=== PATIENT | female | born 1965 | race African-American/Black ===

== ENCOUNTER 2017-03-11 15:50 | Inpatient (IN) | payer MEDICAID ==
[~2017-03-11] VITALS: Ht 152.4 cm; Wt 61.2 kg
[~2017-03-11 15:50] MED LIST: NKM
[2017-03-11 15:53] VITALS: BP 122/58
--- NOTE | 2017-03-11 15:59 | Emergency Room Report ---
History of Present Illness General Chief Complaint: Chest Pain Source: Patient Present Illness HPI Patient presents with chest pain. It began last night. She feels it radiates across her chest that comes from the onset of her last period she tried taking Zantac last night. This is her pass gas but didn't change the feeling of the chest pain. She also felt radiating toward her left arm and had some weakness in that arm earlier today. Gen. a stress. She does not smoke but has risk factor of family history. She states that she had a dobutamine stress test 4 years ago that she passed without difficulty although she felt awful. EMS EKG showed no injury. They gave her aspirin. He held on nitroglycerin because blood pressure was low. She usually has a low blood pressure. She denies fevers, cough, sore throat. She denies dysuria. She supposed is menopausal. She does say that she's been having some loose stools recently. She denies any melena. She also complains about nausea. 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 Nursing Documentation: PMH: Agreed, PSxH: Agreed Nursing Documentation-PMH History Of Psychiatric Problem: Yes - Anxiety Review of Systems All Other Systems: negative except mentioned in HPI Physical Exam Vital Signs Date Time Temp Pulse Resp B/P (MAP) Pulse Ox O2 Delivery O2 Flow Rate FiO2 03/11/17 15:45 98.1 88 16 106/88 100 Room Air Sp02 EP Interpretation: reviewed, normal General Appearance: well appearing, no apparent distress, GCS 15 Head: normocephalic Eyes: bilateral eye normal inspection, bilateral eye PERRL ENT: moist mucus membranes Neck: supple Respiratory: lungs clear, normal breath sounds Cardiovascular #1: regular rate, rhythm Cardiovascular #2: 2+ radial (R) Gastrointestinal: normal inspection, normal bowel sounds, non tender, no mass, non-distended Musculoskeletal: back normal, gait/station normal, normal range of motion Neurologic: alert, oriented x3, grossly normal Psychiatric: mood/affect normal Skin: normal inspection, warm/dry Medical Decision Making Diagnostic Impression: Primary Impression: Chest pain Qualified Codes: R07.9 - Chest pain, unspecified Additional Impressions: UTI (urinary tract infection) Qualified Codes: N30.00 - Acute cystitis without hematuria Stress ER Course Patient presents with chest pain. History is somewhat atypical. She has a risk factor of family history. Differential includes acute myocardial infarction, acute coronary syndrome, costochondritis, chest wall pain, reflux esophagitis, GERD, gastritis amongst others. Evaluation will be was EKG, chest x-ray and labs. The patient received aspirin in the field. Her blood pressures are therefore nitroglycerin cannot be given. The fact that GI meds did not help pain lends possible other etiology. EKG without injury. CXR clear. Labs with negative troponin. Pyuria - antibiotics begun. Improved but still not feel well with chest pressure. Admit tele Dr. Marsh. Laboratory Tests Test 03/11/17 15:45 03/11/17 16:10 03/11/17 21:45 White Blood Count 8.5 K/UL (4.8-10.8) Red Blood Count 4.54 M/UL (4.20-5.40) Hemoglobin 13.5 G/DL (12.0-16.0) Hematocrit 41.9 % (37.0-47.0) Mean Corpuscular Volume 92 FL (80-99) Mean Corpuscular Hemoglobin 29.7 PG (27.0-31.0) Mean Corpuscular Hemoglobin Concent 32.2 G/DL (32.0-36.0) Red Cell Distribution Width 12.5 % (11.6-14.8) Platelet Count 277 K/UL (150-450) Mean Platelet Volume 10.0 FL (6.5-10.1) Neutrophils (%) (Auto) 47.8 % (45.0-75.0) Lymphocytes (%) (Auto) 38.6 % (20.0-45.0) Monocytes (%) (Auto) 8.0 % (1.0-10.0) Eosinophils (%) (Auto) 4.1 % (0.0-3.0) H Basophils (%) (Auto) 1.5 % (0.0-2.0) Prothrombin Time 10.3 SEC (9.30-11.50) Prothrombin Time INR 1.0 (0.9-1.1) PTT 28 SEC (23-33) Sodium Level 141 MMOL/L (136-145) Potassium Level 4.0 MMOL/L (3.5-5.1) Chloride Level 106 MMOL/L (98-107) Carbon Dioxide Level 29 MMOL/L (21-32) Anion Gap 7 mmol/L (5-15) Blood Urea Nitrogen 14 mg/dL (7-18) Creatinine 1.3 MG/DL (0.55-1.30) Estimate Glomerular Filtration Rate 51.9 mL/min (>60) Glucose Level 89 MG/DL (74-106) Calcium Level 9.2 MG/DL (8.5-10.1) Total Bilirubin 0.2 MG/DL (0.2-1.0) Aspartate Amino Transferase (AST) 12 U/L (15-37) L Alanine Aminotransferase (ALT) 13 U/L (12-78) Alkaline Phosphatase 63 U/L (46-116) Total Creatine Kinase 100 U/L (26-140) Troponin I 0.000 ng/mL (0.000-0.056) 0.000 ng/mL (0.000-0.056) Pro-B-Type Natriuretic Peptide 33 pg/mL (0-125) Total Protein 7.7 G/DL (6.4-8.2) Albumin 3.5 G/DL (3.4-5.0) Globulin 4.2 g/dL Albumin/Globulin Ratio 0.8 (1.0-2.7) L Urine Color Pale yellow Urine Appearance Slightly cloudy Urine pH 5 (4.5-8.0) Urine Specific [place] 1.025 (1.005-1.035) Urine Protein 1+ (NEGATIVE) H Urine Glucose (UA) Negative (NEGATIVE) Urine Ketones Negative (NEGATIVE) Urine Occult Blood 2+ (NEGATIVE) H Urine Nitrite Negative (NEGATIVE) Urine Bilirubin Negative (NEGATIVE) Urine Urobilinogen Normal MG/DL (0.0-1.0) Urine Leukocyte Esterase 3+ (NEGATIVE) H Urine RBC 5-10 /HPF (0 - 2) H Urine WBC 40-60 /HPF (0 - 2) H Urine Squamous Epithelial Cells Moderate /LPF (NONE/OCC) H Urine Bacteria Moderate /HPF (NONE) H EKG Diagnostic Results Rate: normal Rhythm: NSR ST Segments: no acute changes Rhythm Strip Diag. Results EP Interpretation: yes Rhythm: NSR, no PVC's, no ectopy Chest X-Ray Diagnostic Results Chest X-Ray Diagnostic Results : Chest X-Ray Ordered: Yes # of Views/Limited/Complete: 1 View EP Interpretation: Yes Interpretation: no consolidation, no effusion, no pneumothorax, no acute cardiopulmonary disease Impression: No acute disease Electronically Signed by: Electronically signed by Bertin Krishna MD Last Vital Signs Date Time Temp Pulse Resp B/P (MAP) Pulse Ox O2 Delivery O2 Flow Rate FiO2 03/12/17 04:28 96.3 55 18 99/54 92 Room Air Status: improved Disposition: ADMITTED INPATIENT Condition: Serious Bertin Krishna M.D. Mar 11, 2017 15:59
[2017-03-11] MEDS ORDERED: LORazepam Inj 2mg/ml 1ml IV ONE (16:00)
[2017-03-11 16:44] LABS: APPEARANCE,URINE SLIGHTLY CLOUDY; KETONES,URINE NEGATIVE (NEGATIVE); LEUKOCYTE ESTERASE ,URINE 3+ (NEGATIVE); NITRITE,URINE NEGATIVE (NEGATIVE); PH,URINE 5 (4.5-8.0); PROTEIN,URINE 1+ (NEGATIVE); UROBILINOGEN,URINE NORMAL MG/DL (0.0-1.0)
[2017-03-11 16:45] LABS: BASOPHILS % (AUTO) 1.5 % (0.0-2.0); EOSINOPHILS % (AUTO) 4.1 % (0.0-3.0); LYMPHOCYTES % (AUTO) 38.6 % (20.0-45.0); MEAN CORPUSCULAR HEMOGLOBIN 29.7 PG (27.0-31.0); MEAN CORPUSCULAR HGB CONC 32.2 G/DL (32.0-36.0); MEAN CORPUSCULAR VOLUME 92 FL (80-99); NEUTROPHILS % (AUTO) 47.8 % (45.0-75.0); PLATELET COUNT 277 K/UL (150-450); RED BLOOD COUNT 4.54 M/UL (4.20-5.40); RED CELL DISTRIBUTION WIDTH 12.5 % (11.6-14.8); WHITE BLOOD COUNT 8.5 K/UL (4.8-10.8)
[2017-03-11 16:58] LABS: PROTHROMBIN TIME 10.3 SEC (9.30-11.50)
[2017-03-11 17:08] LABS: ALANINE AMINOTRANSFERASE 13 U/L (12-78); ASPARTATE AMINO TRANSFERASE 12 U/L (15-37); CALCIUM 9.2 MG/DL (8.5-10.1); CARBON DIOXIDE 29 MMOL/L (21-32); CREATININE 1.3 MG/DL (0.55-1.30); GLOMERULAR FILTRATION RATE 51.9 mL/min (>60)
[2017-03-11 17:09] LABS: ALBUMIN/GLOBULIN RATIO 0.8 (1.0-2.7); TOTAL PROTEIN 7.7 G/DL (6.4-8.2)
[2017-03-11 17:12] LABS: ANION GAP 7 mmol/L (5-15); CHLORIDE 106 MMOL/L (98-107); SODIUM 141 MMOL/L (136-145)
[2017-03-11 17:19] LABS: BACTERIA,URINE MODERATE /HPF; SQUAMOUS EPITHELIAL CELL,UR MODERATE /LPF (NONE/OCC); WBC,URINE 40-60 /HPF (0 - 2)
[2017-03-11] MEDS ORDERED: cefTRIAXone 1 GM in NS 55 ML IVPB ONE (17:30)
[2017-03-11 18:15] VITALS: BP 101/67
[2017-03-11 19:20] VITALS: BP 111/80
[2017-03-11] MEDS ORDERED: Enalaprilat 2.5mg/2ml Inj IV PRN (20:00)
[2017-03-11] MEDS ORDERED: Nitroglycerin Subl 0.4mg tab SL PRN (20:00)
[2017-03-11] MEDS ORDERED: Miralax 17gm pkt ORAL PRN (20:00)
[2017-03-11] MEDS ORDERED: Morphine Sulfate 2mg/ml Inj IVP PRN (20:00)
[2017-03-11] MEDS ORDERED: Albuterol/Ipratropium 3ml neb HHN PRN (20:00)
[2017-03-11] MEDS ORDERED: dilTIAZem HCl 25mg/5ml Inj IV PRN (20:00)
[2017-03-11 20:12] VITALS: BP 103/59
[2017-03-11 21:07] VITALS: BP 99/84
[2017-03-11] MEDS: Heparin 5000 units/ml inj SUBQ SCH (22:03)
[2017-03-12 00:41] VITALS: BP 98/50
[2017-03-12 04:28] VITALS: BP 99/54
[2017-03-12 07:25] LABS: BASOPHILS % (AUTO) 1.4 % (0.0-2.0); EOSINOPHILS % (AUTO) 4.5 % (0.0-3.0); LYMPHOCYTES % (AUTO) 46.8 % (20.0-45.0); MEAN CORPUSCULAR HEMOGLOBIN 29.8 PG (27.0-31.0); MEAN CORPUSCULAR HGB CONC 32.6 G/DL (32.0-36.0); MEAN CORPUSCULAR VOLUME 91 FL (80-99); MEAN PLATELET VOLUME 10.7 FL (6.5-10.1); MONOCYTES % (AUTO) 7.9 % (1.0-10.0); NEUTROPHILS % (AUTO) 39.4 % (45.0-75.0); PLATELET COUNT 244 K/UL (150-450); RED BLOOD COUNT 4.39 M/UL (4.20-5.40); RED CELL DISTRIBUTION WIDTH 12.6 % (11.6-14.8); WHITE BLOOD COUNT 6.7 K/UL (4.8-10.8)
[2017-03-12 07:32] LABS: PROTHROMBIN TIME 10.6 SEC (9.30-11.50)
[2017-03-12 07:52] LABS: CHOLESTEROL 212 MG/DL (< 200); CHOLESTEROL/HDL RATIO 4.2 (3.3-4.4); THYROID STIMULATING HORMONE 3.812 uiU/mL (0.358-3.740)
[2017-03-12 07:53] LABS: CRP QUANT < 0.4 mg/dL (0.00-0.90)
[2017-03-12] MEDS: Aspirin Baby 81mg ORAL SCH (08:35)
[2017-03-12] MEDS: Heparin 5000 units/ml inj SUBQ SCH ×2 (08:36→21:54)
[2017-03-12 08:53] VITALS: BP 94/50
--- NOTE | 2017-03-12 10:15 | Diagnostic Imaging Report ---
Indication: Chest pain Technique: One view of the chest Comparison: none Findings: Lungs and pleural spaces are clear. Heart size is normal. Inspiration is suboptimal, with result in minimal atelectasis at the left lung base Impression: No acute process This agrees with the preliminary interpretation provided by the emergency room physician
[2017-03-12 11:50] VITALS: BP 95/53
[2017-03-12] MEDS ORDERED: Ketorolac 30mg Inj IM PRN (12:30)
[2017-03-12] MEDS: Ketorolac 30mg Inj IV PRN ×2 (13:00→19:11)
--- NOTE | 2017-03-12 14:06 | Cardiology Progress Note ---
Assessment/Plan Assessment/Plan The patient is seen and examined, full consult note will be dictated soon. Objective Last 24 Hour Vital Signs Date Time Temp Pulse Resp B/P (MAP) Pulse Ox O2 Delivery O2 Flow Rate FiO2 03/12/17 11:50 97.3 47 18 95/53 100 03/12/17 08:53 97.2 58 18 94/50 98 03/12/17 08:00 57 03/12/17 04:28 96.3 55 18 99/54 92 Room Air 03/12/17 04:00 41 03/12/17 00:41 96.6 50 18 98/50 93 Room Air 03/12/17 00:00 47 03/11/17 21:07 97.5 66 18 99/84 94 Room Air 03/11/17 20:13 97.6 52 14 111/80 97 Room Air 03/11/17 20:12 97.6 53 16 103/59 95 Room Air 03/11/17 19:20 97.6 52 14 111/80 97 Room Air 03/11/17 18:15 62 17 101/67 97 Room Air 03/11/17 15:53 98.4 65 16 122/58 99 Room Air 03/11/17 15:53 65 16 Room Air 03/11/17 15:45 98.1 88 16 106/88 100 Room Air Intake and Output 03/12/17 03/13/17 19:00 07:00 Intake Total 240 ml Balance 240 ml Intake Oral 240 ml # Voids 2 Laboratory Tests Test 03/11/17 15:45 03/11/17 16:10 03/11/17 21:45 03/12/17 06:55 White Blood Count 8.5 K/UL (4.8-10.8) 6.7 K/UL (4.8-10.8) Red Blood Count 4.54 M/UL (4.20-5.40) 4.39 M/UL (4.20-5.40) Hemoglobin 13.5 G/DL (12.0-16.0) 13.1 G/DL (12.0-16.0) Hematocrit 41.9 % (37.0-47.0) 40.1 % (37.0-47.0) Mean Corpuscular Volume 92 FL (80-99) 91 FL (80-99) Mean Corpuscular Hemoglobin 29.7 PG (27.0-31.0) 29.8 PG (27.0-31.0) Mean Corpuscular Hemoglobin Concent 32.2 G/DL (32.0-36.0) 32.6 G/DL (32.0-36.0) Red Cell Distribution Width 12.5 % (11.6-14.8) 12.6 % (11.6-14.8) Platelet Count 277 K/UL (150-450) 244 K/UL (150-450) Mean Platelet Volume 10.0 FL (6.5-10.1) 10.7 FL (6.5-10.1) H Neutrophils (%) (Auto) 47.8 % (45.0-75.0) 39.4 % (45.0-75.0) L Lymphocytes (%) (Auto) 38.6 % (20.0-45.0) 46.8 % (20.0-45.0) H Monocytes (%) (Auto) 8.0 % (1.0-10.0) 7.9 % (1.0-10.0) Eosinophils (%) (Auto) 4.1 % (0.0-3.0) H 4.5 % (0.0-3.0) H Basophils (%) (Auto) 1.5 % (0.0-2.0) 1.4 % (0.0-2.0) Prothrombin Time 10.3 SEC (9.30-11.50) 10.6 SEC (9.30-11.50) Prothromb Time International Ratio 1.0 (0.9-1.1) 1.0 (0.9-1.1) Activated Partial Thromboplast Time 28 SEC (23-33) 29 SEC (23-33) Sodium Level 141 MMOL/L (136-145) Potassium Level 4.0 MMOL/L (3.5-5.1) Chloride Level 106 MMOL/L (98-107) Carbon Dioxide Level 29 MMOL/L (21-32) Anion Gap 7 mmol/L (5-15) Blood Urea Nitrogen 14 mg/dL (7-18) Creatinine 1.3 MG/DL (0.55-1.30) Estimat Glomerular Filtration Rate 51.9 mL/min (>60) Glucose Level 89 MG/DL (74-106) Calcium Level 9.2 MG/DL (8.5-10.1) Total Bilirubin 0.2 MG/DL (0.2-1.0) Aspartate Amino Transf (AST/SGOT) 12 U/L (15-37) L Alanine Aminotransferase (ALT/SGPT) 13 U/L (12-78) Alkaline Phosphatase 63 U/L (46-116) Total Creatine Kinase 100 U/L (26-140) Troponin I 0.000 ng/mL (0.000-0.056) 0.000 ng/mL (0.000-0.056) 0.000 ng/mL (0.000-0.056) Pro-B-Type Natriuretic Peptide 33 pg/mL (0-125) Total Protein 7.7 G/DL (6.4-8.2) Albumin 3.5 G/DL (3.4-5.0) Globulin 4.2 g/dL Albumin/Globulin Ratio 0.8 (1.0-2.7) L Urine Color Pale yellow Urine Appearance Slightly cloudy Urine pH 5 (4.5-8.0) Urine Specific [place] 1.025 (1.005-1.035) Urine Protein 1+ (NEGATIVE) H Urine Glucose (UA) Negative (NEGATIVE) Urine Ketones Negative (NEGATIVE) Urine Occult Blood 2+ (NEGATIVE) H Urine Nitrite Negative (NEGATIVE) Urine Bilirubin Negative (NEGATIVE) Urine Urobilinogen Normal MG/DL (0.0-1.0) Urine Leukocyte Esterase 3+ (NEGATIVE) H Urine RBC 5-10 /HPF (0 - 2) H Urine WBC 40-60 /HPF (0 - 2) H Urine Squamous Epithelial Cells Moderate /LPF (NONE/OCC) H Urine Bacteria Moderate /HPF (NONE) H C-Reactive Protein, Quantitative < 0.4 mg/dL (0.00-0.90) Triglycerides Level 63 MG/DL (30-150) Cholesterol Level 212 MG/DL (< 200) H LDL Cholesterol 150 mg/dL (<100) H HDL Cholesterol 50 MG/DL (40-60) Cholesterol/HDL Ratio 4.2 (3.3-4.4) Thyroid Stimulating Hormone (TSH) 3.812 uiU/mL (0.358-3.740) Microbiology Date/Time Source Procedure Growth Status 03/11/17 16:10 Urine,Clean Catch Urine Culture - Preliminary NO GROWTH Resulted SAHARA ZAMBRANO Mar 12, 2017 14:06
[2017-03-12 15:39] VITALS: BP 92/50
--- NOTE | 2017-03-12 18:59 | Cardiology Report ---
APPROVED REPORT EXAM: Two-dimensional and M-mode echocardiogram with Doppler and color Doppler. INDICATION Left ventricular function M-Mode DIMENSIONS IVSd1.2 (0.7-1.1cm)Left Atrium (MM)2.9 (1.6-4.0cm) LVDd3.9 (3.5-5.6cm)Aortic Root2.9 (2.0-3.7cm) PWd0.9 (0.7-1.1cm)Aortic Cusp Exc.1.9 (1.5-2.0cm) LVDs2.6 (2.5-4.0cm) PWs1.5 cm Normal left ventricular chamber size, systolic function and wall motion. Left ventricular ejection fraction estimated to be 55%. No left ventricular hypertrophy. No evidence of pericardial effusion. All other cardiac chamber sizes are within normal limits. Mild focal aortic valve sclerosis with adequate cusp excursion. Mildly thickened mitral valve leaflets with normal excursion. Mild mitral annulus and aortic root calcification. Pulmonic valve not well visualized. Normal tricuspid valve structure. IVC at normal size with physiologic collapse. A color flow and spectral Doppler study was performed and revealed: Trace aortic regurgitation. Trace mitral regurgitation. Mitral diastolic velocities indicate normal diastolic function. Trace tricuspid regurgitation. Tricuspid systolic velocities suggests peak right ventricular systolic pressure of 9 mmHg. No pulmonic regurgitation present.
--- NOTE | 2017-03-12 19:23 | Cardiology Report ---
APPROVED REPORT EKG Measurement Heart [id number] ID [id number] Sinus rhythm with occasional premature ventricular complexes Low voltage QRS Borderline ECG
[2017-03-12 20:00] VITALS: BP 126/90
--- NOTE | 2017-03-12 21:00 | History and Physical Report ---
DATE OF ADMISSION: 03/11/2017 TIME SEEN: At 9 a.m. CONSULTANTS: 1. Theodore Fischer M.D. 2. Jazlyn Urban M.D. 3. Dr. Walker. CHIEF COMPLAINT: Chest pain. BRIEF HISTORY: This is a 51-year-old female, who lives at home and presented with substernal chest pain, intermittent, sharp to dull, slightly dizzy, and nausea. No passing out. No radiation. The patient came to [place], diagnosed of ACS and UTI, and admitted to telemetry for further care. Currently, slightly anxious in bed, O2 via NC. No complaint otherwise. PAST MEDICAL HISTORY: Nothing. PAST SURGICAL HISTORY: None. MEDICATIONS: Include Tylenol, aspirin, heparin, levofloxacin, nitroglycerin, Toradol, morphine, MiraLAX, Zofran, Restoril, Vasotec, and Cardizem. ALLERGIES: Denies. SOCIAL HISTORY: No smoking. No alcohol. No intravenous drug abuse. FAMILY HISTORY: Noncontributory. REVIEW OF SYSTEMS: Slight chest pain. Slight shortness of breath. Slight nausea. No vomiting or diarrhea. PHYSICAL EXAMINATION: GENERAL: Anxious in bed, oriented x3, in no acute distress. VITAL SIGNS: Temperature 97, pulse 58, respirations 18, and blood pressure 94/50. CARDIOVASCULAR: No murmur. LUNGS: Poor air exchange. ABDOMEN: Bowel sounds positive. Nontender. Nondistended. EXTREMITIES: No cyanosis, clubbing, or edema. NEUROLOGIC: The patient moves all extremities, but slightly weak. LABORATORY AND DIAGNOSTIC DATA: Laboratories at this time show CBC is normal. Troponin 0.0, 0.0, 0.0. BMP is normal. Cholesterol 212. TSH 3.8. INR 1.0. Urinalysis, 3+ leukocyte esterase. ASSESSMENT AND PLAN: 1. Chest pain. 2. Acute coronary syndrome. 3. Dizzy. 4. Nausea. 5. Urinary tract infection. 6. Hypothyroid. PLAN: Continue pre-admit medications. Troponin q.8 h. x3. EKG in the morning. Antibiotics per infectious diseases. Resume home medications. Pain control. Dr. Fischer, Dr. Urban, Dr. Walker, and Dr. Mares to consult. We will continue to follow this patient. Gunnar Marsh D.O. DR: NAV JOB#: [id number] CC:
[2017-03-13] VITALS: BP 113/89
[2017-03-13 04:00] VITALS: BP 100/63
--- NOTE | 2017-03-13 04:00 | Consultation ---
DATE OF CONSULTATION: 03/12/2017 INFECTIOUS DISEASES CONSULTATION CONSULTING PHYSICIAN: Ori Carroll M.D. PRIMARY ATTENDING PHYSICIAN: Gunnar Marsh D.O. REASON FOR CONSULTATION: UTI. HISTORY OF PRESENT ILLNESS: The patient is a 51-year-old female admitted last night because of chest pain. Chest pain is in the center of the chest with radiation to both legs. It was not related to exertion. The patient was noticed to have increased WBC in the urine. So far, the troponin tests are negative. PAST MEDICAL HISTORY: had history of anxiety before. MEDICATIONS: Tylenol, aspirin, heparin, Levaquin, DuoNeb inhaler, Toradol, morphine, MiraLAX, Zofran, enalaprilat, temazepam, and Cardizem. ALLERGIES: No known drug allergies. SOCIAL HISTORY: Lives at home, single. Denies drug and alcohol abuse. She is a nonsmoker. REVIEW OF SYSTEMS: No fever. No chills. Some coughing that is nonproductive. Chest pain as mentioned. No nausea. No vomiting. No urinary symptoms. PHYSICAL EXAMINATION: VITAL SIGNS: Temperature 97.3, pulse 47, and blood pressure 95/53. GENERAL APPEARANCE: No acute distress. Awake, alert, and oriented. HEAD AND NECK: [place] conjunctivae. No oral lesion. HEART: S1, S2. Regular. LUNGS: Clear. ABDOMEN: Soft, nontender. EXTREMITIES: She has no edema. LABORATORY AND DIAGNOSTIC DATA: WBC 6.7, hemoglobin 13.1, hematocrit 40.1, and platelets 244,000. Sodium 141, potassium 4, chloride 106, bicarbonate 29, BUN 14, and creatinine 1.3. Troponin x3 was zero. TSH is elevated at 3.8. UA showed WBC 40-60, RBC 5-10, and leukocyte esterase 3+. IMPRESSION: 1. Pyuria. We will try to rule out urinary tract infection. 2. The patient has atypical chest pain. RECOMMENDATION: We will continue with Levaquin for now. We will follow up the culture. If the culture remains negative, may stop antibiotics. At the end of my exam, I thank Dr. Marsh for involving me in the care of this patient. Oir Carrlol M.D. DR: Oneil JOB#: [id number] CC: [place]
--- NOTE | 2017-03-13 06:02 | General Progress Note ---
Assessment/Plan Problem List: (1) Abnormal thyroid blood test ICD Codes: R94.6 - Abnormal results of thyroid function studies SNOMED: 055204632 (2) Costochondritis ICD Codes: M94.0 - Chondrocostal junction syndrome [[place]] SNOMED: 89312118 (3) ACS (acute coronary syndrome) ICD Codes: I24.9 - Acute ischemic heart disease, unspecified SNOMED: 735360625 (4) Chest pain ICD Codes: R07.9 - Chest pain, unspecified SNOMED: 49464900 Qualifiers: Qualified Codes: R07.9 - Chest pain, unspecified Assessment/Plan mildly elevated TSH is most likely due to state of illness repeat TSH and check free T4 no need to start thyroxine for now Subjective Allergies: Coded Allergies: No Known Allergies (Unverified , 03/11/17) All Systems: reviewed and negative except above Subjective admitted with chest pain Troponin negative TSH mildly elevated Objective Last 24 Hour Vital Signs Date Time Temp Pulse Resp B/P (MAP) Pulse Ox O2 Delivery O2 Flow Rate FiO2 03/13/17 04:00 49 03/13/17 00:00 97.2 76 20 113/89 100 Nasal Cannula 2.0 03/13/17 00:00 58 03/12/17 20:00 56 03/12/17 20:00 97.9 95 21 126/90 96 Room Air 03/12/17 18:53 54 16 Room Air 21 03/12/17 16:00 53 03/12/17 15:39 97.5 53 18 92/50 100 03/12/17 13:30 97.3 03/12/17 12:00 44 03/12/17 11:50 97.3 47 18 95/53 100 03/12/17 08:53 97.2 58 18 94/50 98 03/12/17 08:00 57 03/12/17 07:53 58 18 Room Air 21 Laboratory Tests 03/12/17 06:55: White Blood Count 6.7, Red Blood Count 4.39, Hemoglobin 13.1, Hematocrit 40.1, Mean Corpuscular Volume 91, Mean Corpuscular Hemoglobin 29.8, Mean Corpuscular Hemoglobin Concent 32.6, Red Cell Distribution Width 12.6, Platelet Count 244, Mean Platelet Volume 10.7H, Neutrophils (%) (Auto) 39.4L, Lymphocytes (%) (Auto ) 46.8H, Monocytes (%) (Auto) 7.9, Eosinophils (%) (Auto) 4.5H, Basophils (%) ( Auto) 1.4, Prothrombin Time 10.6, Prothromb Time International Ratio 1.0, Activated Partial Thromboplast Time 29, Troponin I 0.000, C-Reactive Protein, Quantitative < 0.4, Triglycerides Level 63, Cholesterol Level 212H, LDL Cholesterol 150H, HDL Cholesterol 50, Cholesterol/HDL Ratio 4.2, Thyroid Stimulating Hormone (TSH) 3.812H Height (Feet): 5 Height (Inches): 0.00 Weight (Pounds): 135 General Appearance: no apparent distress EENT: PERRL/EOMI Neck: normal alignment Cardiovascular: normal rate Respiratory/Chest: lungs clear Abdomen: normal bowel sounds Objective Current Medications Medications (Trade) Dose Ordered Sig/Domi Route PRN Reason Start Time Stop Time Status Last Admin Dose Admin Acetaminophen (Tylenol) 650 mg Q6H PRN ORAL Mild Pain/Temp > 100.5 03/12/17 09:45 04/11/17 09:44 Albuterol/ Ipratropium (Albuterol/ Ipratropium) 3 ml Q4H PRN HHN Shortness of Breath 03/11/17 20:00 03/16/17 19:59 Aspirin (ASA) 162 mg DAILY ORAL 03/12/17 09:00 04/11/17 08:59 03/12/17 08:35 Diltiazem HCl (Cardizem) 10 mg Q1H PRN IV heart rate more than 120, 03/11/17 20:00 04/10/17 19:59 Enalaprilat (Vasotec) 2.5 mg Q6H PRN IV sbp more than 160 03/11/17 20:00 04/10/17 19:59 Heparin Sodium (Porcine) (Heparin 5000 units/ml) 5,000 units EVERY 12 HOURS SUBQ 03/11/17 21:00 04/10/17 20:59 03/12/17 21:54 Ketorolac Tromethamine (Toradol 30mg) 30 mg Q6H PRN IV moderate pain ( 4-6) 03/11/17 20:00 03/16/17 19:59 03/12/17 19:11 Levofloxacin 100 ml @ 100 mls/hr Q24H IVPB 03/11/17 21:00 03/18/17 20:59 03/12/17 21:52 Morphine Sulfate (Morphine Sulfate) 2 mg Q4H PRN IVP severe Pain (Pain Scale 7-10) 03/11/17 20:00 03/18/17 19:59 03/11/17 22:20 Nitroglycerin (Ntg) 0.4 mg Every 5 Minutes PRN SL Prn Chest Pain 03/11/17 20:00 04/10/17 19:59 Ondansetron HCl (Zofran) 4 mg Q6H PRN IVP Nausea & Vomiting 03/11/17 20:00 04/10/17 19:59 Polyethylene Glycol (Miralax) 17 gm DAILYPRN PRN ORAL Constipation 03/11/17 20:00 04/10/17 19:59 Temazepam (Restoril) 15 mg HSPRN PRN ORAL Insomnia 03/11/17 20:00 03/18/17 19:59 PAVAN SANZ Mar 13, 2017 06:02
[2017-03-13 06:37] LABS: EOSINOPHILS % (AUTO) 3.4 % (0.0-3.0); LYMPHOCYTES % (AUTO) 38.4 % (20.0-45.0); MEAN CORPUSCULAR HEMOGLOBIN 30.9 PG (27.0-31.0); MEAN CORPUSCULAR HGB CONC 33.9 G/DL (32.0-36.0); MEAN CORPUSCULAR VOLUME 91 FL (80-99); MONOCYTES % (AUTO) 8.3 % (1.0-10.0); NEUTROPHILS % (AUTO) 48.8 % (45.0-75.0); PLATELET COUNT 231 K/UL (150-450); RED BLOOD COUNT 4.26 M/UL (4.20-5.40); RED CELL DISTRIBUTION WIDTH 12.4 % (11.6-14.8); WHITE BLOOD COUNT 6.5 K/UL (4.8-10.8)
[2017-03-13 08:13] LABS: ANION GAP 8 mmol/L (5-15); CARBON DIOXIDE 27 MMOL/L (21-32); CHLORIDE 106 MMOL/L (98-107); CREATININE 1.4 MG/DL (0.55-1.30); GLOMERULAR FILTRATION RATE 47.6 mL/min (>60); POTASSIUM 5.2 MMOL/L (3.5-5.1); SODIUM 140 MMOL/L (136-145)
[2017-03-13 08:38] VITALS: BP 111/54
[2017-03-13 08:56] LABS: THYROID STIMULATING HORMONE 1.909 uiU/mL (0.358-3.740)
[2017-03-13] MEDS: Aspirin Baby 81mg ORAL SCH (09:00)
[2017-03-13] MEDS: Heparin 5000 units/ml inj SUBQ SCH ×2 (09:02→20:54)
[2017-03-13 11:46] VITALS: BP 101/63
[2017-03-13] MEDS: Ketorolac 30mg Inj IV PRN ×2 (14:16→20:53)
--- NOTE | 2017-03-13 14:16 | Infectious Diseases Prog Note ---
Assessment/Plan Assessment/Plan A; Pyuria, Doubt UTI Chest pain P; Discontinue Levaquin Patient will have cardiac stress test Subjective ROS Limited/Unobtainable: No Constitutional: Reports: no symptoms Respiratory: Reports: no symptoms Cardiovascular: Reports: chest pain, other - in left side Gastrointestinal/Abdominal: Reports: no symptoms Genitourinary: Reports: no symptoms Allergies: Coded Allergies: No Known Allergies (Unverified , 03/11/17) Objective Vital Signs Last 24 Hour Vital Signs Date Time Temp Pulse Resp B/P (MAP) Pulse Ox O2 Delivery O2 Flow Rate FiO2 03/13/17 12:00 47 03/13/17 11:46 97.3 53 18 101/63 99 03/13/17 08:38 96.6 55 18 111/54 100 03/13/17 08:00 53 03/13/17 04:00 49 03/13/17 04:00 97.3 61 21 100/63 99 Room Air 03/13/17 00:00 97.2 76 20 113/89 100 Nasal Cannula 2.0 03/13/17 00:00 58 03/12/17 20:00 56 03/12/17 20:00 97.9 95 21 126/90 96 Room Air 03/12/17 18:53 54 16 Room Air 21 03/12/17 16:00 53 03/12/17 15:39 97.5 53 18 92/50 100 Height (Feet): 5 Height (Inches): 0.00 Weight (Pounds): 135 General Appearance: no acute distress HEENT: mucous membranes moist Respiratory/Chest: lungs clear Cardiovascular: normal rate Abdomen: soft, non tender Extremities: no edema Neurologic/Psychiatric: alert, oriented x 3, responsive Microbiology Date/Time Source Procedure Growth Status 03/11/17 16:10 Urine,Clean Catch Urine Culture - Preliminary Mixed Gram Positive Organism Resulted Laboratory Tests Test 03/13/17 05:55 White Blood Count 6.5 K/UL (4.8-10.8) Red Blood Count 4.26 M/UL (4.20-5.40) Hemoglobin 13.2 G/DL (12.0-16.0) Hematocrit 38.9 % (37.0-47.0) Mean Corpuscular Volume 91 FL (80-99) Mean Corpuscular Hemoglobin 30.9 PG (27.0-31.0) Mean Corpuscular Hemoglobin Concent 33.9 G/DL (32.0-36.0) Red Cell Distribution Width 12.4 % (11.6-14.8) Platelet Count 231 K/UL (150-450) Mean Platelet Volume 11.0 FL (6.5-10.1) H Neutrophils (%) (Auto) 48.8 % (45.0-75.0) Lymphocytes (%) (Auto) 38.4 % (20.0-45.0) Monocytes (%) (Auto) 8.3 % (1.0-10.0) Eosinophils (%) (Auto) 3.4 % (0.0-3.0) H Basophils (%) (Auto) 1.0 % (0.0-2.0) Sodium Level 140 MMOL/L (136-145) Potassium Level 5.2 MMOL/L (3.5-5.1) H Chloride Level 106 MMOL/L (98-107) Carbon Dioxide Level 27 MMOL/L (21-32) Anion Gap 8 mmol/L (5-15) Blood Urea Nitrogen 21 mg/dL (7-18) H Creatinine 1.4 MG/DL (0.55-1.30) H Estimat Glomerular Filtration Rate 47.6 mL/min (>60) Glucose Level 91 MG/DL (74-106) Calcium Level 9.0 MG/DL (8.5-10.1) Troponin I 0.000 ng/mL (0.000-0.056) Thyroid Stimulating Hormone (TSH) 1.909 uiU/mL (0.358-3.740) Free Thyroxine 0.92 NG/DL (0.76-1.46) Current Medications Medications (Trade) Dose Ordered Sig/Domi Route PRN Reason Start Time Stop Time Status Last Admin Dose Admin Acetaminophen (Tylenol) 650 mg Q6H PRN ORAL Mild Pain/Temp > 100.5 03/12/17 09:45 04/11/17 09:44 Albuterol/ Ipratropium (Albuterol/ Ipratropium) 3 ml Q4H PRN HHN Shortness of Breath 03/11/17 20:00 03/16/17 19:59 Aspirin (ASA) 162 mg DAILY ORAL 03/12/17 09:00 04/11/17 08:59 03/13/17 09:00 Diltiazem HCl (Cardizem) 10 mg Q1H PRN IV heart rate more than 120, 03/11/17 20:00 04/10/17 19:59 Enalaprilat (Vasotec) 2.5 mg Q6H PRN IV sbp more than 160 03/11/17 20:00 04/10/17 19:59 Heparin Sodium (Porcine) (Heparin 5000 units/ml) 5,000 units EVERY 12 HOURS SUBQ 03/11/17 21:00 04/10/17 20:59 03/13/17 09:02 Ketorolac Tromethamine (Toradol 30mg) 30 mg Q6H PRN IV moderate pain ( 4-6) 03/11/17 20:00 03/16/17 19:59 03/12/17 19:11 Levofloxacin 100 ml @ 100 mls/hr Q24H IVPB 03/11/17 21:00 03/18/17 20:59 03/12/17 21:52 Morphine Sulfate (Morphine Sulfate) 2 mg Q4H PRN IVP severe Pain (Pain Scale 7-10) 03/11/17 20:00 03/18/17 19:59 03/11/17 22:20 Nitroglycerin (Ntg) 0.4 mg Every 5 Minutes PRN SL Prn Chest Pain 03/11/17 20:00 04/10/17 19:59 Ondansetron HCl (Zofran) 4 mg Q6H PRN IVP Nausea & Vomiting 03/11/17 20:00 04/10/17 19:59 Polyethylene Glycol (Miralax) 17 gm DAILYPRN PRN ORAL Constipation 03/11/17 20:00 04/10/17 19:59 Temazepam (Restoril) 15 mg HSPRN PRN ORAL Insomnia 03/11/17 20:00 03/18/17 19:59 EV P[facility] Mar 13, 2017 14:16
--- NOTE | 2017-03-13 14:17 | General Progress Note ---
Assessment/Plan Problem List: (1) UTI (urinary tract infection) ICD Codes: N39.0 - Urinary tract infection, site not specified SNOMED: 32669111, 198465652 Qualifiers: Qualified Codes: N30.00 - Acute cystitis without hematuria (2) Chest pain ICD Codes: R07.9 - Chest pain, unspecified SNOMED: 79615620 Qualifiers: Qualified Codes: R07.9 - Chest pain, unspecified (3) Stress ICD Codes: F43.9 - Reaction to severe stress, unspecified SNOMED: 13467016, 902938431 (4) Anxiety ICD Codes: F41.9 - Anxiety disorder, unspecified SNOMED: 74228636 (5) Costochondritis ICD Codes: M94.0 - Chondrocostal junction syndrome [Tietze] SNOMED: 67316002 (6) ACS (acute coronary syndrome) ICD Codes: I24.9 - Acute ischemic heart disease, unspecified SNOMED: 977153800 (7) Abnormal thyroid blood test ICD Codes: R94.6 - Abnormal results of thyroid function studies SNOMED: 745699326 Status: stable, progressing, tolerating diet Assessment/Plan ot pt diet cardio eval pain control cbc bmp am Subjective Constitutional: Reports: weakness Allergies: Coded Allergies: No Known Allergies (Unverified , 03/11/17) All Systems: reviewed and negative except above Subjective calm in bed sl cp Objective Last 24 Hour Vital Signs Date Time Temp Pulse Resp B/P (MAP) Pulse Ox O2 Delivery O2 Flow Rate FiO2 03/13/17 12:00 47 03/13/17 11:46 97.3 53 18 101/63 99 03/13/17 08:38 96.6 55 18 111/54 100 03/13/17 08:00 53 03/13/17 04:00 49 03/13/17 04:00 97.3 61 21 100/63 99 Room Air 03/13/17 00:00 97.2 76 20 113/89 100 Nasal Cannula 2.0 03/13/17 00:00 58 03/12/17 20:00 56 03/12/17 20:00 97.9 95 21 126/90 96 Room Air 03/12/17 18:53 54 16 Room Air 21 03/12/17 16:00 53 03/12/17 15:39 97.5 53 18 92/50 100 Intake and Output 03/13/17 03/14/17 19:00 07:00 Intake Total 240 ml Balance 240 ml Intake Oral 240 ml Laboratory Tests 03/13/17 05:55: White Blood Count 6.5, Red Blood Count 4.26, Hemoglobin 13.2, Hematocrit 38.9, Mean Corpuscular Volume 91, Mean Corpuscular Hemoglobin 30.9, Mean Corpuscular Hemoglobin Concent 33.9, Red Cell Distribution Width 12.4, Platelet Count 231, Mean Platelet Volume 11.0H, Neutrophils (%) (Auto) 48.8, Lymphocytes (%) (Auto) 38.4, Monocytes (%) (Auto) 8.3, Eosinophils (%) (Auto) 3.4H, Basophils (%) (Auto ) 1.0, Sodium Level 140, Potassium Level 5.2H, Chloride Level 106, Carbon Dioxide Level 27, Anion Gap 8, Blood Urea Nitrogen 21H, Creatinine 1.4H, Estimat Glomerular Filtration Rate 47.6, Glucose Level 91, Calcium Level 9.0, Troponin I 0.000, Thyroid Stimulating Hormone (TSH) 1.909, Free Thyroxine 0.92 Height (Feet): 5 Height (Inches): 0.00 Weight (Pounds): 135 General Appearance: alert EENT: normal ENT inspection Neck: normal alignment Cardiovascular: normal peripheral pulses, normal rate, regular rhythm Respiratory/Chest: chest wall non-tender, lungs clear, normal breath sounds Abdomen: normal bowel sounds, non tender, soft Extremities: normal inspection Edema: no edema noted Arm (L), no edema noted Arm (R), no edema noted Leg (L), no edema noted Leg (R), no edema noted Pedal (L), no edema noted Pedal (R), no edema noted Generalized Neurologic: responsive, motor weakness Skin: normal pigmentation, warm/dry ELSA SCHULZ Mar 13, 2017 14:17
[2017-03-13 15:47] VITALS: BP 93/48
--- NOTE | 2017-03-13 16:12 | Consultation ---
History of Present Illness General Date patient seen: Mar 11, 2017 Chief Complaint: Chest Pain Referring physician: Dr. Marsh Reason for Consultation: chest pain Present Illness HPI 51 year old female presented with chest pain since last night radiating across her chest that comes from the onset of her last period she tried taking Zantac last night. She also felt radiating toward her left arm and had some weakness in that arm earlier today. She denies fevers, cough, sore throat. she is admitted to telemetry for ACS Allergies: Coded Allergies: No Known Allergies (Unverified , 03/11/17) Medication History Scheduled No Known Medications* (NKM - No Known Medications*), 0 ., (Reported) Patient History Healthcare decision maker N Resuscitation status Advanced Directive on File Past Medical/Surgical History Past Medical/Surgical History: (1) Anxiety Review of Systems All Other Systems: negative except mentioned in HPI Physical Exam General Appearance: WD/WN Lines, tubes and drains: peripheral HEENT: atraumatic, anicteric Neck: normal alignment, supple Respiratory/Chest: lungs clear, normal breath sounds Last 24 Hour Vital Signs Date Time Temp Pulse Resp B/P (MAP) Pulse Ox O2 Delivery O2 Flow Rate FiO2 03/13/17 15:47 98.2 59 18 93/48 100 03/13/17 14:46 97.3 03/13/17 12:00 47 03/13/17 11:46 97.3 53 18 101/63 99 03/13/17 08:38 96.6 55 18 111/54 100 03/13/17 08:00 53 03/13/17 04:00 49 03/13/17 04:00 97.3 61 21 100/63 99 Room Air 03/13/17 00:00 97.2 76 20 113/89 100 Nasal Cannula 2.0 03/13/17 00:00 58 03/12/17 20:00 56 03/12/17 20:00 97.9 95 21 126/90 96 Room Air 03/12/17 18:53 54 16 Room Air 21 Intake and Output 03/13/17 03/14/17 19:00 07:00 Intake Total 240 ml Balance 240 ml Intake Oral 240 ml Laboratory Tests Test 03/13/17 05:55 White Blood Count 6.5 K/UL (4.8-10.8) Red Blood Count 4.26 M/UL (4.20-5.40) Hemoglobin 13.2 G/DL (12.0-16.0) Hematocrit 38.9 % (37.0-47.0) Mean Corpuscular Volume 91 FL (80-99) Mean Corpuscular Hemoglobin 30.9 PG (27.0-31.0) Mean Corpuscular Hemoglobin Concent 33.9 G/DL (32.0-36.0) Red Cell Distribution Width 12.4 % (11.6-14.8) Platelet Count 231 K/UL (150-450) Mean Platelet Volume 11.0 FL (6.5-10.1) H Neutrophils (%) (Auto) 48.8 % (45.0-75.0) Lymphocytes (%) (Auto) 38.4 % (20.0-45.0) Monocytes (%) (Auto) 8.3 % (1.0-10.0) Eosinophils (%) (Auto) 3.4 % (0.0-3.0) H Basophils (%) (Auto) 1.0 % (0.0-2.0) Sodium Level 140 MMOL/L (136-145) Potassium Level 5.2 MMOL/L (3.5-5.1) H Chloride Level 106 MMOL/L (98-107) Carbon Dioxide Level 27 MMOL/L (21-32) Anion Gap 8 mmol/L (5-15) Blood Urea Nitrogen 21 mg/dL (7-18) H Creatinine 1.4 MG/DL (0.55-1.30) H Estimat Glomerular Filtration Rate 47.6 mL/min (>60) Glucose Level 91 MG/DL (74-106) Calcium Level 9.0 MG/DL (8.5-10.1) Troponin I 0.000 ng/mL (0.000-0.056) Thyroid Stimulating Hormone (TSH) 1.909 uiU/mL (0.358-3.740) Free Thyroxine 0.92 NG/DL (0.76-1.46) Height (Feet): 5 Height (Inches): 0.00 Weight (Pounds): 135 Medications Current Medications Medications (Trade) Dose Ordered Sig/Domi Route PRN Reason Start Time Stop Time Status Last Admin Dose Admin Acetaminophen (Tylenol) 650 mg Q6H PRN ORAL Mild Pain/Temp > 100.5 12/11/17 09:45 04/11/17 09:44 Albuterol/ Ipratropium (Albuterol/ Ipratropium) 3 ml Q4H PRN HHN Shortness of Breath 03/11/17 20:00 03/16/17 19:59 Aspirin (ASA) 162 mg DAILY ORAL 03/12/17 09:00 04/11/17 08:59 03/13/17 09:00 Diltiazem HCl (Cardizem) 10 mg Q1H PRN IV heart rate more than 120, 03/11/17 20:00 04/10/17 19:59 Enalaprilat (Vasotec) 2.5 mg Q6H PRN IV sbp more than 160 03/11/17 20:00 04/10/17 19:59 Heparin Sodium (Porcine) (Heparin 5000 units/ml) 5,000 units EVERY 12 HOURS SUBQ 03/11/17 21:00 04/10/17 20:59 03/13/17 09:02 Ketorolac Tromethamine (Toradol 30mg) 30 mg Q6H PRN IV moderate pain ( 4-6) 03/11/17 20:00 03/16/17 19:59 03/13/17 14:16 Morphine Sulfate (Morphine Sulfate) 2 mg Q4H PRN IVP severe Pain (Pain Scale 7-10) 03/11/17 20:00 03/18/17 19:59 03/11/17 22:20 Nitroglycerin (Ntg) 0.4 mg Every 5 Minutes PRN SL Prn Chest Pain 03/11/17 20:00 04/10/17 19:59 Ondansetron HCl (Zofran) 4 mg Q6H PRN IVP Nausea & Vomiting 03/11/17 20:00 04/10/17 19:59 Polyethylene Glycol (Miralax) 17 gm DAILYPRN PRN ORAL Constipation 03/11/17 20:00 04/10/17 19:59 Temazepam (Restoril) 15 mg HSPRN PRN ORAL Insomnia 03/11/17 20:00 03/18/17 19:59 Assessment/Plan Problem List: (1) ACS (acute coronary syndrome) ICD Codes: I24.9 - Acute ischemic heart disease, unspecified SNOMED: 247641001 (2) Chest pain ICD Codes: R07.9 - Chest pain, unspecified SNOMED: 68615880 Qualifiers: Qualified Codes: R07.9 - Chest pain, unspecified (3) Costochondritis ICD Codes: M94.0 - Chondrocostal junction syndrome [Tietze] SNOMED: 87681368 (4) Anxiety ICD Codes: F41.9 - Anxiety disorder, unspecified SNOMED: 20210635 Assessment/Plan serial ekg, troponin echo cardiology evaluation symptomatic treatment AMANDA RENDON Mar 13, 2017 16:12
--- NOTE | 2017-03-13 16:15 | Pulmonology Progress Note ---
Assessment/Plan Problems: (1) ACS (acute coronary syndrome) (2) Chest pain (3) Costochondritis (4) Anxiety Assessment/Plan serial ekg, troponin negative cardio f/u echo Subjective Interval Events: late note for 03/12, no new complains, Allergies: Coded Allergies: No Known Allergies (Unverified , 03/11/17) Objective Last 24 Hour Vital Signs Date Time Temp Pulse Resp B/P (MAP) Pulse Ox O2 Delivery O2 Flow Rate FiO2 03/13/17 15:47 98.2 59 18 93/48 100 03/13/17 14:46 97.3 03/13/17 12:00 47 03/13/17 11:46 97.3 53 18 101/63 99 03/13/17 08:38 96.6 55 18 111/54 100 03/13/17 08:00 53 03/13/17 04:00 49 03/13/17 04:00 97.3 61 21 100/63 99 Room Air 03/13/17 00:00 97.2 76 20 113/89 100 Nasal Cannula 2.0 03/13/17 00:00 58 03/12/17 20:00 56 03/12/17 20:00 97.9 95 21 126/90 96 Room Air 03/12/17 18:53 54 16 Room Air 21 Intake and Output 03/13/17 03/14/17 19:00 07:00 Intake Total 240 ml Balance 240 ml Intake Oral 240 ml General Appearance: WD/WN HEENT: normocephalic, atraumatic Respiratory/Chest: chest wall non-tender, lungs clear Breasts: no masses Cardiovascular: normal peripheral pulses, regular rhythm Abdomen: normal bowel sounds, soft, non tender, no organomegaly Genitourinary: normal external genitalia Extremities: no cyanosis Microbiology Date/Time Source Procedure Growth Status 03/11/17 16:10 Urine,Clean Catch Urine Culture - Preliminary Mixed Gram Positive Organism Resulted Laboratory Tests 03/13/17 05:55: White Blood Count 6.5, Red Blood Count 4.26, Hemoglobin 13.2, Hematocrit 38.9, Mean Corpuscular Volume 91, Mean Corpuscular Hemoglobin 30.9, Mean Corpuscular Hemoglobin Concent 33.9, Red Cell Distribution Width 12.4, Platelet Count 231, Mean Platelet Volume 11.0H, Neutrophils (%) (Auto) 48.8, Lymphocytes (%) (Auto) 38.4, Monocytes (%) (Auto) 8.3, Eosinophils (%) (Auto) 3.4H, Basophils (%) (Auto ) 1.0, Sodium Level 140, Potassium Level 5.2H, Chloride Level 106, Carbon Dioxide Level 27, Anion Gap 8, Blood Urea Nitrogen 21H, Creatinine 1.4H, Estimat Glomerular Filtration Rate 47.6, Glucose Level 91, Calcium Level 9.0, Troponin I 0.000, Thyroid Stimulating Hormone (TSH) 1.909, Free Thyroxine 0.92 Current Medications Medications (Trade) Dose Ordered Sig/Domi Route PRN Reason Start Time Stop Time Status Last Admin Dose Admin Acetaminophen (Tylenol) 650 mg Q6H PRN ORAL Mild Pain/Temp > 100.5 03/12/17 09:45 04/11/17 09:44 Albuterol/ Ipratropium (Albuterol/ Ipratropium) 3 ml Q4H PRN HHN Shortness of Breath 03/11/17 20:00 03/16/17 19:59 Aspirin (ASA) 162 mg DAILY ORAL 03/12/17 09:00 04/11/17 08:59 03/13/17 09:00 Diltiazem HCl (Cardizem) 10 mg Q1H PRN IV heart rate more than 120, 03/11/17 20:00 04/10/17 19:59 Enalaprilat (Vasotec) 2.5 mg Q6H PRN IV sbp more than 160 03/11/17 20:00 04/10/17 19:59 Heparin Sodium (Porcine) (Heparin 5000 units/ml) 5,000 units EVERY 12 HOURS SUBQ 03/11/17 21:00 04/10/17 20:59 03/13/17 09:02 Ketorolac Tromethamine (Toradol 30mg) 30 mg Q6H PRN IV moderate pain ( 4-6) 03/11/17 20:00 03/16/17 19:59 03/13/17 14:16 Morphine Sulfate (Morphine Sulfate) 2 mg Q4H PRN IVP severe Pain (Pain Scale 7-10) 03/11/17 20:00 03/18/17 19:59 03/11/17 22:20 Nitroglycerin (Ntg) 0.4 mg Every 5 Minutes PRN SL Prn Chest Pain 03/11/17 20:00 04/10/17 19:59 Ondansetron HCl (Zofran) 4 mg Q6H PRN IVP Nausea & Vomiting 03/11/17 20:00 04/10/17 19:59 Polyethylene Glycol (Miralax) 17 gm DAILYPRN PRN ORAL Constipation 03/11/17 20:00 04/10/17 19:59 Temazepam (Restoril) 15 mg HSPRN PRN ORAL Insomnia 03/11/17 20:00 03/18/17 19:59 AMANDA RENDON Mar 13, 2017 16:15
--- NOTE | 2017-03-13 16:17 | Pulmonology Progress Note ---
Assessment/Plan Problems: (1) ACS (acute coronary syndrome) (2) Chest pain (3) Costochondritis (4) Anxiety Assessment/Plan stress echo oerdered serial ekg, troponin negative cardio f/u no new complains Subjective Interval Events: stress echo is ordered Allergies: Coded Allergies: No Known Allergies (Unverified , 03/11/17) Objective Last 24 Hour Vital Signs Date Time Temp Pulse Resp B/P (MAP) Pulse Ox O2 Delivery O2 Flow Rate FiO2 03/13/17 15:47 98.2 59 18 93/48 100 03/13/17 14:46 97.3 03/13/17 12:00 47 03/13/17 11:46 97.3 53 18 101/63 99 03/13/17 08:38 96.6 55 18 111/54 100 03/13/17 08:00 53 03/13/17 04:00 49 03/13/17 04:00 97.3 61 21 100/63 99 Room Air 03/13/17 00:00 97.2 76 20 113/89 100 Nasal Cannula 2.0 03/13/17 00:00 58 03/12/17 20:00 56 03/12/17 20:00 97.9 95 21 126/90 96 Room Air 03/12/17 18:53 54 16 Room Air 21 Intake and Output 03/13/17 03/14/17 19:00 07:00 Intake Total 240 ml Balance 240 ml Intake Oral 240 ml General Appearance: WD/WN HEENT: normocephalic, atraumatic Respiratory/Chest: chest wall non-tender, normal breath sounds Breasts: no masses Cardiovascular: normal peripheral pulses Abdomen: normal bowel sounds Microbiology Date/Time Source Procedure Growth Status 03/11/17 16:10 Urine,Clean Catch Urine Culture - Preliminary Mixed Gram Positive Organism Resulted Laboratory Tests 03/13/17 05:55: White Blood Count 6.5, Red Blood Count 4.26, Hemoglobin 13.2, Hematocrit 38.9, Mean Corpuscular Volume 91, Mean Corpuscular Hemoglobin 30.9, Mean Corpuscular Hemoglobin Concent 33.9, Red Cell Distribution Width 12.4, Platelet Count 231, Mean Platelet Volume 11.0H, Neutrophils (%) (Auto) 48.8, Lymphocytes (%) (Auto) 38.4, Monocytes (%) (Auto) 8.3, Eosinophils (%) (Auto) 3.4H, Basophils (%) (Auto ) 1.0, Sodium Level 140, Potassium Level 5.2H, Chloride Level 106, Carbon Dioxide Level 27, Anion Gap 8, Blood Urea Nitrogen 21H, Creatinine 1.4H, Estimat Glomerular Filtration Rate 47.6, Glucose Level 91, Calcium Level 9.0, Troponin I 0.000, Thyroid Stimulating Hormone (TSH) 1.909, Free Thyroxine 0.92 Current Medications Medications (Trade) Dose Ordered Sig/Domi Route PRN Reason Start Time Stop Time Status Last Admin Dose Admin Acetaminophen (Tylenol) 650 mg Q6H PRN ORAL Mild Pain/Temp > 100.5 03/12/17 09:45 04/11/17 09:44 Albuterol/ Ipratropium (Albuterol/ Ipratropium) 3 ml Q4H PRN HHN Shortness of Breath 03/11/17 20:00 03/16/17 19:59 Aspirin (ASA) 162 mg DAILY ORAL 03/12/17 09:00 04/11/17 08:59 03/13/17 09:00 Diltiazem HCl (Cardizem) 10 mg Q1H PRN IV heart rate more than 120, 03/11/17 20:00 04/10/17 19:59 Enalaprilat (Vasotec) 2.5 mg Q6H PRN IV sbp more than 160 03/11/17 20:00 04/10/17 19:59 Heparin Sodium (Porcine) (Heparin 5000 units/ml) 5,000 units EVERY 12 HOURS SUBQ 03/11/17 21:00 04/10/17 20:59 03/13/17 09:02 Ketorolac Tromethamine (Toradol 30mg) 30 mg Q6H PRN IV moderate pain ( 4-6) 03/11/17 20:00 03/16/17 19:59 03/13/17 14:16 Morphine Sulfate (Morphine Sulfate) 2 mg Q4H PRN IVP severe Pain (Pain Scale 7-10) 03/11/17 20:00 03/18/17 19:59 03/11/17 22:20 Nitroglycerin (Ntg) 0.4 mg Every 5 Minutes PRN SL Prn Chest Pain 03/11/17 20:00 1/9/18 19:59 Ondansetron HCl (Zofran) 4 mg Q6H PRN IVP Nausea & Vomiting 03/11/17 20:00 04/10/17 19:59 Polyethylene Glycol (Miralax) 17 gm DAILYPRN PRN ORAL Constipation 03/11/17 20:00 04/10/17 19:59 Temazepam (Restoril) 15 mg HSPRN PRN ORAL Insomnia 03/11/17 20:00 03/18/17 19:59 AMANDA RENDON Mar 13, 2017 16:17
[2017-03-13 20:13] VITALS: BP 110/55
[2017-03-13 23:07] LABS: APPEARANCE,URINE CLEAR; KETONES,URINE NEGATIVE (NEGATIVE); LEUKOCYTE ESTERASE ,URINE 3+ (NEGATIVE); NITRITE,URINE NEGATIVE (NEGATIVE); PH,URINE 5 (4.5-8.0); PROTEIN,URINE 1+ (NEGATIVE); UROBILINOGEN,URINE NORMAL MG/DL (0.0-1.0)
[2017-03-13 23:11] LABS: BACTERIA,URINE MODERATE /HPF; SQUAMOUS EPITHELIAL CELL,UR FEW /LPF (NONE/OCC)
[2017-03-13 23:12] LABS: WBC,URINE 15-20 /HPF (0 - 2)
[2017-03-14] VITALS: BP 104/60
[2017-03-14 04:00] VITALS: BP 107/57
[2017-03-14 08:15] VITALS: BP 98/72
[2017-03-14 08:15] LABS: BASOPHILS % (AUTO) 1.5 % (0.0-2.0); EOSINOPHILS % (AUTO) 3.2 % (0.0-3.0); LYMPHOCYTES % (AUTO) 36.8 % (20.0-45.0); MEAN CORPUSCULAR HEMOGLOBIN 27.9 PG (27.0-31.0); MEAN CORPUSCULAR HGB CONC 30.4 G/DL (32.0-36.0); MEAN CORPUSCULAR VOLUME 92 FL (80-99); MEAN PLATELET VOLUME 8.7 FL (6.5-10.1); NEUTROPHILS % (AUTO) 52.5 % (45.0-75.0); PLATELET COUNT 204 K/UL (150-450); RED CELL DISTRIBUTION WIDTH 12.6 % (11.6-14.8); WHITE BLOOD COUNT 7.4 K/UL (4.8-10.8)
[2017-03-14 08:38] LABS: ALANINE AMINOTRANSFERASE 12 U/L (12-78); ALBUMIN/GLOBULIN RATIO 0.8 (1.0-2.7); ANION GAP 5 mmol/L (5-15); ASPARTATE AMINO TRANSFERASE 13 U/L (15-37); CALCIUM 8.7 MG/DL (8.5-10.1); CARBON DIOXIDE 27 MMOL/L (21-32); CHLORIDE 107 MMOL/L (98-107); CREATININE 1.3 MG/DL (0.55-1.30); GLOMERULAR FILTRATION RATE 51.9 mL/min (>60); MAGNESIUM 1.7 MG/DL (1.8-2.4); POTASSIUM 4.1 MMOL/L (3.5-5.1); SODIUM 139 MMOL/L (136-145); TOTAL PROTEIN 7.1 G/DL (6.4-8.2)
[2017-03-14] MEDS: Heparin 5000 units/ml inj SUBQ SCH ×2 (08:50→20:56)
[2017-03-14] MEDS: Aspirin Baby 81mg ORAL SCH (08:51)
--- NOTE | 2017-03-14 10:48 | Infectious Diseases Prog Note ---
Assessment/Plan Assessment/Plan A; Pyuria, Doubt UTI Chest pain P; observe off antibiotic Subjective ROS Limited/Unobtainable: Yes Allergies: Coded Allergies: No Known Allergies (Unverified , 03/11/17) Objective Vital Signs Last 24 Hour Vital Signs Date Time Temp Pulse Resp B/P (MAP) Pulse Ox O2 Delivery O2 Flow Rate FiO2 03/14/17 09:19 53 12 Room Air 21 03/14/17 08:15 97.5 56 18 98/72 100 03/14/17 04:00 48 03/14/17 04:00 97.5 51 20 107/57 Room Air 03/14/17 00:11 49 03/14/17 00:00 97.7 85 20 104/60 92 Room Air 03/13/17 20:17 59 03/13/17 20:13 97.7 59 21 110/55 100 Room Air 03/13/17 19:47 61 16 Room Air 21 03/13/17 16:00 56 03/13/17 15:47 98.2 59 18 93/48 100 03/13/17 14:46 97.3 03/13/17 12:00 47 03/13/17 11:46 97.3 53 18 101/63 99 Height (Feet): 5 Height (Inches): 0.00 Weight (Pounds): 135 General Appearance: no acute distress HEENT: mucous membranes moist Respiratory/Chest: lungs clear Cardiovascular: bradycardia Abdomen: soft, non tender Extremities: no edema Neurologic/Psychiatric: other - sleeping Microbiology Date/Time Source Procedure Growth Status 03/11/17 16:10 Urine,Clean Catch Urine Culture - Final Mixed Gram Positive Organism Complete Laboratory Tests Test 03/13/17 22:00 03/14/17 07:45 Urine Color Yellow Urine Appearance Clear Urine pH 5 (4.5-8.0) Urine Specific [place] 1.025 (1.005-1.035) Urine Protein 1+ (NEGATIVE) H Urine Glucose (UA) Negative (NEGATIVE) Urine Ketones Negative (NEGATIVE) Urine Occult Blood 1+ (NEGATIVE) H Urine Nitrite Negative (NEGATIVE) Urine Bilirubin Negative (NEGATIVE) Urine Urobilinogen Normal MG/DL (0.0-1.0) Urine Leukocyte Esterase 3+ (NEGATIVE) H Urine RBC 5-10 /HPF (0 - 2) H Urine WBC 15-20 /HPF (0 - 2) H Urine Squamous Epithelial Cells Few /LPF (NONE/OCC) Urine Bacteria Moderate /HPF (NONE) H White Blood Count 7.4 K/UL (4.8-10.8) Red Blood Count 4.40 M/UL (4.20-5.40) Hemoglobin 12.3 G/DL (12.0-16.0) Hematocrit 40.5 % (37.0-47.0) Mean Corpuscular Volume 92 FL (80-99) Mean Corpuscular Hemoglobin 27.9 PG (27.0-31.0) Mean Corpuscular Hemoglobin Concent 30.4 G/DL (32.0-36.0) L Red Cell Distribution Width 12.6 % (11.6-14.8) Platelet Count 204 K/UL (150-450) Mean Platelet Volume 8.7 FL (6.5-10.1) Neutrophils (%) (Auto) 52.5 % (45.0-75.0) Lymphocytes (%) (Auto) 36.8 % (20.0-45.0) Monocytes (%) (Auto) 6.0 % (1.0-10.0) Eosinophils (%) (Auto) 3.2 % (0.0-3.0) H Basophils (%) (Auto) 1.5 % (0.0-2.0) Sodium Level 139 MMOL/L (136-145) Potassium Level 4.1 MMOL/L (3.5-5.1) Chloride Level 107 MMOL/L (98-107) Carbon Dioxide Level 27 MMOL/L (21-32) Anion Gap 5 mmol/L (5-15) Blood Urea Nitrogen 22 mg/dL (7-18) H Creatinine 1.3 MG/DL (0.55-1.30) Estimat Glomerular Filtration Rate 51.9 mL/min (>60) Glucose Level 111 MG/DL (74-106) H Calcium Level 8.7 MG/DL (8.5-10.1) Phosphorus Level 3.0 MG/DL (2.5-4.9) Magnesium Level 1.7 MG/DL (1.8-2.4) L Total Bilirubin 0.2 MG/DL (0.2-1.0) Aspartate Amino Transf (AST/SGOT) 13 U/L (15-37) L Alanine Aminotransferase (ALT/SGPT) 12 U/L (12-78) Alkaline Phosphatase 54 U/L (46-116) Total Protein 7.1 G/DL (6.4-8.2) Albumin 3.1 G/DL (3.4-5.0) L Globulin 4.0 g/dL Albumin/Globulin Ratio 0.8 (1.0-2.7) L Current Medications Medications (Trade) Dose Ordered Sig/Domi Route PRN Reason Start Time Stop Time Status Last Admin Dose Admin Acetaminophen (Tylenol) 650 mg Q6H PRN ORAL Mild Pain/Temp > 100.5 03/12/17 09:45 04/11/17 09:44 Albuterol/ Ipratropium (Albuterol/ Ipratropium) 3 ml Q4H PRN HHN Shortness of Breath 03/11/17 20:00 03/16/17 19:59 Aspirin (ASA) 162 mg DAILY ORAL 03/12/17 09:00 04/11/17 08:59 03/14/17 08:51 Diltiazem HCl (Cardizem) 10 mg Q1H PRN IV heart rate more than 120, 03/11/17 20:00 04/10/17 19:59 Enalaprilat (Vasotec) 2.5 mg Q6H PRN IV sbp more than 160 03/11/17 20:00 04/10/17 19:59 Heparin Sodium (Porcine) (Heparin 5000 units/ml) 5,000 units EVERY 12 HOURS SUBQ 03/11/17 21:00 04/10/17 20:59 03/14/17 08:50 Ketorolac Tromethamine (Toradol 30mg) 30 mg Q6H PRN IV moderate pain ( 4-6) 03/11/17 20:00 03/16/17 19:59 03/13/17 20:53 Morphine Sulfate (Morphine Sulfate) 2 mg Q4H PRN IVP severe Pain (Pain Scale 7-10) 03/11/17 20:00 03/18/17 19:59 03/11/17 22:20 Nitroglycerin (Ntg) 0.4 mg Every 5 Minutes PRN SL Prn Chest Pain 03/11/17 20:00 04/10/17 19:59 Ondansetron HCl (Zofran) 4 mg Q6H PRN IVP Nausea & Vomiting 12/10/17 20:00 04/10/17 19:59 Polyethylene Glycol (Miralax) 17 gm DAILYPRN PRN ORAL Constipation 03/11/17 20:00 04/10/17 19:59 Temazepam (Restoril) 15 mg HSPRN PRN ORAL Insomnia 03/11/17 20:00 03/18/17 19:59 EV PAREKH Mar 14, 2017 10:47
[2017-03-14 11:31] VITALS: BP 103/60
--- NOTE | 2017-03-14 13:57 | Pulmonology Progress Note ---
Assessment/Plan Problems: (1) ACS (acute coronary syndrome) (2) Chest pain (3) Costochondritis (4) Anxiety Assessment/Plan stress echo was negative serial ekg, troponin negative cardio f/u no new complains dc planning Subjective ROS Limited/Unobtainable: No Constitutional: Reports: no symptoms HEENT: Repors: no symptoms Respiratory: Reports: no symptoms Cardiovascular: Reports: no symptoms Allergies: Coded Allergies: No Known Allergies (Unverified , 03/11/17) Objective Last 24 Hour Vital Signs Date Time Temp Pulse Resp B/P (MAP) Pulse Ox O2 Delivery O2 Flow Rate FiO2 03/14/17 12:00 55 03/14/17 11:31 97.7 56 18 103/60 100 03/14/17 09:19 53 12 Room Air 21 03/14/17 08:15 97.5 56 18 98/72 100 03/14/17 08:00 58 03/14/17 04:00 48 03/14/17 04:00 97.5 51 20 107/57 Room Air 03/14/17 00:11 49 03/14/17 00:00 97.7 85 20 104/60 92 Room Air 03/13/17 20:17 59 03/13/17 20:13 97.7 59 21 110/55 100 Room Air 03/13/17 19:47 61 16 Room Air 21 03/13/17 16:00 56 03/13/17 15:47 98.2 59 18 93/48 100 03/13/17 14:46 97.3 Intake and Output 03/14/17 03/15/17 19:00 07:00 Intake Total 480 ml Balance 480 ml Intake Oral 480 ml # Voids 2 General Appearance: WD/WN HEENT: normocephalic, mucous membranes moist Respiratory/Chest: chest wall non-tender, normal breath sounds Cardiovascular: normal peripheral pulses, regularly irregular Abdomen: normal bowel sounds, soft, non tender Microbiology Date/Time Source Procedure Growth Status 03/11/17 16:10 Urine,Clean Catch Urine Culture - Final Mixed Gram Positive Organism Complete Laboratory Tests 03/13/17 22:00: Urine Color Yellow, Urine Appearance Clear, Urine pH 5, Urine Specific [place] 1.025, Urine Protein 1+H, Urine Glucose (UA) Negative, Urine Ketones Negative, Urine Occult Blood 1+H, Urine Nitrite Negative, Urine Bilirubin Negative, Urine Urobilinogen Normal, Urine Leukocyte Esterase 3+H, Urine RBC 5-10H, Urine WBC 15 -20H, Urine Squamous Epithelial Cells Few, Urine Bacteria ModerateH 03/14/17 07:45: White Blood Count 7.4, Red Blood Count 4.40, Hemoglobin 12.3, Hematocrit 40.5, Mean Corpuscular Volume 92, Mean Corpuscular Hemoglobin 27.9, Mean Corpuscular Hemoglobin Concent 30.4L, Red Cell Distribution Width 12.6, Platelet Count 204, Mean Platelet Volume 8.7, Neutrophils (%) (Auto) 52.5, Lymphocytes (%) (Auto) 36.8, Monocytes (%) (Auto) 6.0, Eosinophils (%) (Auto) 3.2H, Basophils (%) (Auto ) 1.5, Sodium Level 139, Potassium Level 4.1, Chloride Level 107, Carbon Dioxide Level 27, Anion Gap 5, Blood Urea Nitrogen 22H, Creatinine 1.3, Estimat Glomerular Filtration Rate 51.9, Glucose Level 111H, Calcium Level 8.7, Phosphorus Level 3.0, Magnesium Level 1.7L, Total Bilirubin 0.2, Aspartate Amino Transf (AST/SGOT) 13L, Alanine Aminotransferase (ALT/SGPT) 12, Alkaline Phosphatase 54, Total Protein 7.1, Albumin 3.1L, Globulin 4.0, Albumin/Globulin Ratio 0.8L Current Medications Medications (Trade) Dose Ordered Sig/Domi Route PRN Reason Start Time Stop Time Status Last Admin Dose Admin Acetaminophen (Tylenol) 650 mg Q6H PRN ORAL Mild Pain/Temp > 100.5 03/12/17 09:45 04/11/17 09:44 Albuterol/ Ipratropium (Albuterol/ Ipratropium) 3 ml Q4H PRN HHN Shortness of Breath 03/11/17 20:00 03/16/17 19:59 Aspirin (ASA) 162 mg DAILY ORAL 03/12/17 09:00 04/11/17 08:59 03/14/17 08:51 Diltiazem HCl (Cardizem) 10 mg Q1H PRN IV heart rate more than 120, 03/11/17 20:00 04/10/17 19:59 Enalaprilat (Vasotec) 2.5 mg Q6H PRN IV sbp more than 160 03/11/17 20:00 04/10/17 19:59 Heparin Sodium (Porcine) (Heparin 5000 units/ml) 5,000 units EVERY 12 HOURS SUBQ 03/11/17 21:00 04/10/17 20:59 03/14/17 08:50 Ketorolac Tromethamine (Toradol 30mg) 30 mg Q6H PRN IV moderate pain ( 4-6) 03/11/17 20:00 03/16/17 19:59 03/13/17 20:53 Morphine Sulfate (Morphine Sulfate) 2 mg Q4H PRN IVP severe Pain (Pain Scale 7-10) 03/11/17 20:00 03/18/17 19:59 03/11/17 22:20 Nitroglycerin (Ntg) 0.4 mg Every 5 Minutes PRN SL Prn Chest Pain 03/11/17 20:00 04/10/17 19:59 Ondansetron HCl (Zofran) 4 mg Q6H PRN IVP Nausea & Vomiting 03/11/17 20:00 04/10/17 19:59 Polyethylene Glycol (Miralax) 17 gm DAILYPRN PRN ORAL Constipation 03/11/17 20:00 04/10/17 19:59 Temazepam (Restoril) 15 mg HSPRN PRN ORAL Insomnia 03/11/17 20:00 03/18/17 19:59 AMANDA RENDON Mar 14, 2017 13:56
--- NOTE | 2017-03-14 14:45 | General Progress Note ---
Assessment/Plan Problem List: (1) UTI (urinary tract infection) ICD Codes: N39.0 - Urinary tract infection, site not specified SNOMED: 55347735, 359225682 Qualifiers: Qualified Codes: N30.00 - Acute cystitis without hematuria (2) Chest pain ICD Codes: R07.9 - Chest pain, unspecified SNOMED: 31254594 Qualifiers: Qualified Codes: R07.9 - Chest pain, unspecified (3) Stress ICD Codes: F43.9 - Reaction to severe stress, unspecified SNOMED: 35155675, 575271820 (4) Anxiety ICD Codes: F41.9 - Anxiety disorder, unspecified SNOMED: 13631079 (5) Costochondritis ICD Codes: M94.0 - Chondrocostal junction syndrome [[place]ietze] SNOMED: 74646651 (6) ACS (acute coronary syndrome) ICD Codes: I24.9 - Acute ischemic heart disease, unspecified SNOMED: 271656424 (7) Abnormal thyroid blood test ICD Codes: R94.6 - Abnormal results of thyroid function studies SNOMED: 182163998 Status: stable, progressing, tolerating diet Assessment/Plan ot pt diet cardio eval pain control cbc bmp am dc plan Subjective Allergies: Coded Allergies: No Known Allergies (Unverified , 03/11/17) All Systems: reviewed and negative except above Subjective calm in bed sl cp Objective Last 24 Hour Vital Signs Date Time Temp Pulse Resp B/P (MAP) Pulse Ox O2 Delivery O2 Flow Rate FiO2 03/14/17 12:00 55 03/14/17 11:31 97.7 56 18 103/60 100 03/14/17 09:19 53 12 Room Air 03/14/17 08:15 97.5 56 18 98/72 100 03/14/17 08:00 58 03/14/17 04:00 48 03/14/17 04:00 97.5 51 20 107/57 Room Air 03/14/17 00:11 49 03/14/17 00:00 97.7 85 20 104/60 92 Room Air 03/13/17 20:17 59 03/13/17 20:13 97.7 59 21 110/55 100 Room Air 03/13/17 19:47 61 16 Room Air 21 03/13/17 16:00 56 03/13/17 15:47 98.2 59 18 93/48 100 03/13/17 14:46 97.3 Intake and Output 03/14/17 03/15/17 19:00 07:00 Intake Total 480 ml Balance 480 ml Intake Oral 480 ml # Voids 2 Laboratory Tests 03/13/17 22:00: Urine Color Yellow, Urine Appearance Clear, Urine pH 5, Urine Specific [place] 1.025, Urine Protein 1+H, Urine Glucose (UA) Negative, Urine Ketones Negative, Urine Occult Blood 1+H, Urine Nitrite Negative, Urine Bilirubin Negative, Urine Urobilinogen Normal, Urine Leukocyte Esterase 3+H, Urine RBC 5-10H, Urine WBC 15 -20H, Urine Squamous Epithelial Cells Few, Urine Bacteria ModerateH 03/14/17 07:45: White Blood Count 7.4, Red Blood Count 4.40, Hemoglobin 12.3, Hematocrit 40.5, Mean Corpuscular Volume 92, Mean Corpuscular Hemoglobin 27.9, Mean Corpuscular Hemoglobin Concent 30.4L, Red Cell Distribution Width 12.6, Platelet Count 204, Mean Platelet Volume 8.7, Neutrophils (%) (Auto) 52.5, Lymphocytes (%) (Auto) 36.8, Monocytes (%) (Auto) 6.0, Eosinophils (%) (Auto) 3.2H, Basophils (%) (Auto ) 1.5, Sodium Level 139, Potassium Level 4.1, Chloride Level 107, Carbon Dioxide Level 27, Anion Gap 5, Blood Urea Nitrogen 22H, Creatinine 1.3, Estimat Glomerular Filtration Rate 51.9, Glucose Level 111H, Calcium Level 8.7, Phosphorus Level 3.0, Magnesium Level 1.7L, Total Bilirubin 0.2, Aspartate Amino Transf (AST/SGOT) 13L, Alanine Aminotransferase (ALT/SGPT) 12, Alkaline Phosphatase 54, Total Protein 7.1, Albumin 3.1L, Globulin 4.0, Albumin/Globulin Ratio 0.8L Height (Feet): 5 Height (Inches): 0.00 Weight (Pounds): 135 General Appearance: alert EENT: normal ENT inspection Neck: normal alignment Cardiovascular: normal peripheral pulses, normal rate, regular rhythm Respiratory/Chest: chest wall non-tender, lungs clear, normal breath sounds Abdomen: normal bowel sounds, non tender, soft Extremities: normal inspection Edema: no edema noted Arm (L), no edema noted Arm (R), no edema noted Leg (L), no edema noted Leg (R), no edema noted Pedal (L), no edema noted Pedal (R), no edema noted Generalized Neurologic: responsive, motor weakness Skin: normal pigmentation, warm/dry ELSA SCHULZ Mar 14, 2017 14:45
[2017-03-14 15:35] VITALS: BP 99/57
[2017-03-14] MEDS: Ketorolac 30mg Inj IV PRN (17:01)
[2017-03-14 20:14] VITALS: BP 91/51
--- NOTE | 2017-03-14 20:40 | Cardiology Progress Note ---
Assessment/Plan Assessment/Plan 1. Non-cardiac chest pain, no cardiac intervention required, ECG no ischemic, 2D echo no WMA, with normal LVEF. AMI is rule out. CP likely due to anxiety, GI or musculoskeletal. 2. Anxiety disorder. Subjective Subjective Sinus bradycardia at 54. Objective Last 24 Hour Vital Signs Date Time Temp Pulse Resp B/P (MAP) Pulse Ox O2 Delivery O2 Flow Rate FiO2 03/14/17 20:20 54 18 Room Air 21 03/14/17 20:14 97.0 54 20 91/51 97 Room Air 03/14/17 16:00 61 03/14/17 15:35 98.1 64 18 99/57 100 03/14/17 12:00 55 03/14/17 11:31 97.7 56 18 103/60 100 03/14/17 09:19 53 12 Room Air 21 03/14/17 08:15 97.5 56 18 98/72 100 03/14/17 08:00 58 03/14/17 04:00 48 03/14/17 04:00 97.5 51 20 107/57 Room Air 03/14/17 00:11 49 03/14/17 00:00 97.7 85 20 104/60 92 Room Air Intake and Output 03/14/17 03/15/17 19:00 07:00 Intake Total 830 ml Balance 830 ml Intake Oral 830 ml # Voids 3 2D Echo: LVEF 60%, RVSP 12 mmHg Laboratory Tests Test 03/13/17 22:00 03/14/17 07:45 Urine Color Yellow Urine Appearance Clear Urine pH 5 (4.5-8.0) Urine Specific [place] 1.025 (1.005-1.035) Urine Protein 1+ (NEGATIVE) H Urine Glucose (UA) Negative (NEGATIVE) Urine Ketones Negative (NEGATIVE) Urine Occult Blood 1+ (NEGATIVE) H Urine Nitrite Negative (NEGATIVE) Urine Bilirubin Negative (NEGATIVE) Urine Urobilinogen Normal MG/DL (0.0-1.0) Urine Leukocyte Esterase 3+ (NEGATIVE) H Urine RBC 5-10 /HPF (0 - 2) H Urine WBC 15-20 /HPF (0 - 2) H Urine Squamous Epithelial Cells Few /LPF (NONE/OCC) Urine Bacteria Moderate /HPF (NONE) H White Blood Count 7.4 K/UL (4.8-10.8) Red Blood Count 4.40 M/UL (4.20-5.40) Hemoglobin 12.3 G/DL (12.0-16.0) Hematocrit 40.5 % (37.0-47.0) Mean Corpuscular Volume 92 FL (80-99) Mean Corpuscular Hemoglobin 27.9 PG (27.0-31.0) Mean Corpuscular Hemoglobin Concent 30.4 G/DL (32.0-36.0) L Red Cell Distribution Width 12.6 % (11.6-14.8) Platelet Count 204 K/UL (150-450) Mean Platelet Volume 8.7 FL (6.5-10.1) Neutrophils (%) (Auto) 52.5 % (45.0-75.0) Lymphocytes (%) (Auto) 36.8 % (20.0-45.0) Monocytes (%) (Auto) 6.0 % (1.0-10.0) Eosinophils (%) (Auto) 3.2 % (0.0-3.0) H Basophils (%) (Auto) 1.5 % (0.0-2.0) Sodium Level 139 MMOL/L (136-145) Potassium Level 4.1 MMOL/L (3.5-5.1) Chloride Level 107 MMOL/L (98-107) Carbon Dioxide Level 27 MMOL/L (21-32) Anion Gap 5 mmol/L (5-15) Blood Urea Nitrogen 22 mg/dL (7-18) H Creatinine 1.3 MG/DL (0.55-1.30) Estimat Glomerular Filtration Rate 51.9 mL/min (>60) Glucose Level 111 MG/DL (74-106) H Calcium Level 8.7 MG/DL (8.5-10.1) Phosphorus Level 3.0 MG/DL (2.5-4.9) Magnesium Level 1.7 MG/DL (1.8-2.4) L Total Bilirubin 0.2 MG/DL (0.2-1.0) Aspartate Amino Transf (AST/SGOT) 13 U/L (15-37) L Alanine Aminotransferase (ALT/SGPT) 12 U/L (12-78) Alkaline Phosphatase 54 U/L (46-116) Total Protein 7.1 G/DL (6.4-8.2) Albumin 3.1 G/DL (3.4-5.0) L Globulin 4.0 g/dL Albumin/Globulin Ratio 0.8 (1.0-2.7) L Objective General Appearance: well appearing, no apparent distress, GCS 15 HEENT: normocephalic, bilateral eye normal inspection, bilateral eye PERRL Neck: No JVD, no carotid bruit. Respiratory: lungs clear Cardiovascular: regular rate, rhythm, normal S1S2, no murmurs, gallops or rubs. Gastrointestinal: normal inspection, normal bowel sounds, non tender, no mass, non-distended Musculoskeletal: back normal, gait/station normal, no edema, clubbing or cyanosis. Neurologic: alert, oriented x3, grossly normal SAHARA ZAMBRANO Mar 14, 2017 20:40
--- NOTE | 2017-03-14 21:30 | Consultation ---
DATE OF CONSULTATION: 03/12/2017 CARDIOLOGY CONSULTATION CONSULTING PHYSICIAN: Theodore Fischer M.D. REFERRING PHYSICIAN: Gunnar Marsh D.O. REASON FOR CONSULTATION: Management of chest pain. HISTORY OF PRESENT ILLNESS: The patient is a very unfortunate 51-year-old lady, who presents to the hospital with complaints of chest pain, which is described as a sharp pain with radiation to the left arm, started from the onset of her last period now responding to Zantac as she thought that this might come from her stomach. She states that she had dobutamine stress test about four years ago, which was negative. She denies any associated shortness of breath. On arrival to the emergency department, a 12-lead electrocardiogram showed no evidence of ST and T-wave abnormalities. Her blood pressure was 106/88 mmHg in the emergency department and a heart rate of 88. She does not have any risk factors for coronary artery disease except the fact that she has premature coronary artery disease in the first-degree relatives. PAST MEDICAL HISTORY: None. PAST SURGICAL HISTORY: None. PAST PSYCHIATRIC HISTORY: History of anxiety. MEDICATIONS: List of medications, none. ALLERGIES: No known drug allergies. SOCIAL HISTORY: Denies any tobacco, alcohol, or illicit drug use. REVIEW OF SYSTEMS: A 12-system review done is essentially negative except what is mentioned in the history of present illness. PHYSICAL EXAMINATION: VITAL SIGNS: Blood pressure was 106/88, pulse of 88, respirations 16, O2 saturation 100% on room air, and temperature 98.1 degrees Fahrenheit. GENERAL: The patient is a very pleasant 51-year-old female, in no apparent respiratory distress. Alert and oriented x4. HEENT: Atraumatic and normocephalic. Anicteric. Pupils are equal, round, and reactive to light and accommodation. Extraocular muscles intact. NECK: JVP less than 5 cm. No carotid bruit. Carotid upstrokes 2+ bilaterally. CARDIOVASCULAR: Normal S1 and S2. Regular rate and rhythm. No murmurs, gallops, or rubs. PMI is at fourth intercostal space at the midclavicular line. LUNGS: Clear to auscultation bilaterally. ABDOMEN: Soft, nontender, and nondistended. No hepatosplenomegaly. Positive bowel sounds. EXTREMITIES: No evidence of edema, clubbing, or cyanosis. LABORATORY FINDINGS: Sodium is 141, potassium is 4.0, chloride 106, bicarbonate 29, BUN 14, creatinine 1.3, and glucose is 89. Calcium is 9.2. Troponin I x2 negative. ProBNP was 33. C-reactive protein is less than 0.4. Lipid panel shows total cholesterol of 212, LDL of 150, and HDL of 50. TSH is 3.81. INR was 1.0. A 12-lead electrocardiogram, sinus rhythm at a rate of 62 with no abnormalities. Chest x-ray showed no acute cardiopulmonary disease. A 12-lead electrocardiogram was significant for normal LV systolic function with LVEF of 55%. No wall motion abnormalities. RVSP of 9 mmHg and normal valvular physiology. ASSESSMENT AND PLAN: The patient is a very unfortunate 51-year-old female, who is seen in Cardiology consultation. Most likely noncardiac chest pain with the characteristics of chest pain. All the imaging and laboratory findings are within normal limits. Acute myocardial function is negative. The patient has had a recent dobutamine stress test. It showed no evidence of ischemia. No further cardiac intervention is required at this point. The chest pain is unlikely to be ischemic in origin. The patient is required to be treated for anxiety and possible musculoskeletal etiologies. I would like to thank, Dr. Marsh, for allowing me to participate in the care of this patient. Theodore Fischer M.D. DR: KEE JOB#: [id number] CC:
[2017-03-15 00:20] VITALS: BP 129/56
[2017-03-15 04:00] VITALS: BP 116/64
[2017-03-15 07:40] LABS: BASOPHILS % (AUTO) 1.4 % (0.0-2.0); EOSINOPHILS % (AUTO) 2.7 % (0.0-3.0); LYMPHOCYTES % (AUTO) 38.7 % (20.0-45.0); MEAN CORPUSCULAR HEMOGLOBIN 29.8 PG (27.0-31.0); MEAN CORPUSCULAR HGB CONC 32.4 G/DL (32.0-36.0); MEAN CORPUSCULAR VOLUME 92 FL (80-99); MEAN PLATELET VOLUME 10.3 FL (6.5-10.1); MONOCYTES % (AUTO) 7.1 % (1.0-10.0); NEUTROPHILS % (AUTO) 50.1 % (45.0-75.0); PLATELET COUNT 193 K/UL (150-450); RED BLOOD COUNT 4.27 M/UL (4.20-5.40); RED CELL DISTRIBUTION WIDTH 12.4 % (11.6-14.8); WHITE BLOOD COUNT 7.5 K/UL (4.8-10.8)
[2017-03-15 07:47] LABS: ANION GAP 6 mmol/L (5-15); CALCIUM 9.1 MG/DL (8.5-10.1); CARBON DIOXIDE 27 MMOL/L (21-32); CHLORIDE 108 MMOL/L (98-107); CREATININE 1.3 MG/DL (0.55-1.30); GLOMERULAR FILTRATION RATE 51.9 mL/min (>60); POTASSIUM 4.4 MMOL/L (3.5-5.1); SODIUM 141 MMOL/L (136-145)
[2017-03-15 08:49] VITALS: BP 122/71
--- NOTE | 2017-03-15 09:20 | General Progress Note ---
Progress Note Progress Note [id number] full note dictated SERENA ARAGON Mar 15, 2017 09:20
--- NOTE | 2017-03-15 09:34 | Infectious Diseases Prog Note ---
Assessment/Plan Assessment/Plan A; Pyuria, Doubt UTI Chest pain Anxiety P; observe off antibiotic Subjective ROS Limited/Unobtainable: No Constitutional: Reports: no symptoms Respiratory: Reports: no symptoms Cardiovascular: Reports: no symptoms Allergies: Coded Allergies: No Known Allergies (Unverified , 03/11/17) Objective Vital Signs Last 24 Hour Vital Signs Date Time Temp Pulse Resp B/P (MAP) Pulse Ox O2 Delivery O2 Flow Rate FiO2 03/15/17 08:49 97.7 73 18 122/71 96 03/15/17 08:03 58 20 Room Air 21 03/15/17 04:00 97.0 47 20 116/64 98 Room Air 03/15/17 04:00 43 03/15/17 00:20 97.0 54 20 129/56 97 Room Air 03/15/17 00:00 58 03/14/17 20:20 54 18 Room Air 21 03/14/17 20:14 97.0 54 20 91/51 97 Room Air 03/14/17 20:00 50 03/14/17 16:00 61 03/14/17 15:35 98.1 64 18 99/57 100 03/14/17 12:00 55 03/14/17 11:31 97.7 56 18 103/60 100 Height (Feet): 5 Height (Inches): 0.00 Weight (Pounds): 135 General Appearance: no acute distress HEENT: mucous membranes moist Respiratory/Chest: lungs clear Cardiovascular: normal rate, regular rhythm Abdomen: soft, non tender Extremities: no edema Neurologic/Psychiatric: alert, oriented x 3, responsive Microbiology Date/Time Source Procedure Growth Status 03/13/17 22:00 Urine,Clean Catch Urine Culture - Preliminary Resulted Laboratory Tests Test 03/15/17 06:55 White Blood Count 7.5 K/UL (4.8-10.8) Red Blood Count 4.27 M/UL (4.20-5.40) Hemoglobin 12.7 G/DL (12.0-16.0) Hematocrit 39.2 % (37.0-47.0) Mean Corpuscular Volume 92 FL (80-99) Mean Corpuscular Hemoglobin 29.8 PG (27.0-31.0) Mean Corpuscular Hemoglobin Concent 32.4 G/DL (32.0-36.0) Red Cell Distribution Width 12.4 % (11.6-14.8) Platelet Count 193 K/UL (150-450) Mean Platelet Volume 10.3 FL (6.5-10.1) H Neutrophils (%) (Auto) 50.1 % (45.0-75.0) Lymphocytes (%) (Auto) 38.7 % (20.0-45.0) Monocytes (%) (Auto) 7.1 % (1.0-10.0) Eosinophils (%) (Auto) 2.7 % (0.0-3.0) Basophils (%) (Auto) 1.4 % (0.0-2.0) Sodium Level 141 MMOL/L (136-145) Potassium Level 4.4 MMOL/L (3.5-5.1) Chloride Level 108 MMOL/L (98-107) H Carbon Dioxide Level 27 MMOL/L (21-32) Anion Gap 6 mmol/L (5-15) Blood Urea Nitrogen 23 mg/dL (7-18) H Creatinine 1.3 MG/DL (0.55-1.30) Estimat Glomerular Filtration Rate 51.9 mL/min (>60) Glucose Level 88 MG/DL (74-106) Calcium Level 9.1 MG/DL (8.5-10.1) Current Medications Medications (Trade) Dose Ordered Sig/Domi Route PRN Reason Start Time Stop Time Status Last Admin Dose Admin Acetaminophen (Tylenol) 650 mg Q6H PRN ORAL Mild Pain/Temp > 100.5 03/12/17 09:45 04/11/17 09:44 Albuterol/ Ipratropium (Albuterol/ Ipratropium) 3 ml Q4H PRN HHN Shortness of Breath 03/11/17 20:00 03/16/17 19:59 Aspirin (ASA) 162 mg DAILY ORAL 03/12/17 09:00 04/11/17 08:59 03/14/17 08:51 Diltiazem HCl (Cardizem) 10 mg Q1H PRN IV heart rate more than 120, 03/11/17 20:00 04/10/17 19:59 Enalaprilat (Vasotec) 2.5 mg Q6H PRN IV sbp more than 160 03/11/17 20:00 04/10/17 19:59 Heparin Sodium (Porcine) (Heparin 5000 units/ml) 5,000 units EVERY 12 HOURS SUBQ 03/11/17 21:00 04/10/17 20:59 03/14/17 20:56 Ketorolac Tromethamine (Toradol 30mg) 30 mg Q6H PRN IV moderate pain ( 4-6) 03/11/17 20:00 03/16/17 19:59 03/14/17 17:01 Morphine Sulfate (Morphine Sulfate) 2 mg Q4H PRN IVP severe Pain (Pain Scale 7-10) 03/11/17 20:00 03/18/17 19:59 03/11/17 22:20 Nitroglycerin (Ntg) 0.4 mg Every 5 Minutes PRN SL Prn Chest Pain 03/11/17 20:00 04/10/17 19:59 Ondansetron HCl (Zofran) 4 mg Q6H PRN IVP Nausea & Vomiting 03/11/17 20:00 04/10/17 19:59 Polyethylene Glycol (Miralax) 17 gm DAILYPRN PRN ORAL Constipation 03/11/17 20:00 04/10/17 19:59 Temazepam (Restoril) 15 mg HSPRN PRN ORAL Insomnia 03/11/17 20:00 03/18/17 19:59 EV PAREKH Mar 15, 2017 09:34
[2017-03-15] MEDS: Aspirin Baby 81mg ORAL SCH (10:53)
[2017-03-15] MEDS: Heparin 5000 units/ml inj SUBQ SCH (10:55)
--- NOTE | 2017-03-15 15:15 | Consultation ---
DATE OF CONSULTATION: 03/15/2017 NEPHROLOGY CONSULTATION REFERRING PHYSICIAN: Gunnar Marsh D.O. REASON FOR FOLLOWUP CONSULTATION: Electrolyte abnormality. HISTORY OF PRESENT ILLNESS: The patient is a 51-year-old female with no significant past medical history presented to the emergency room complaining of chest pain. The chest pain was a left-sided, radiating to her left arm, was not associated with nausea, vomiting, or shortness of breath. The patient's chest pain responded to Zantac. The patient also found to have a normal blood pressure in the ER. The patient found to have a mild elevation in electrolyte and potassium. I was called for management of renal disease and electrolyte imbalance. PAST MEDICAL HISTORY: History of anxiety. PAST SURGICAL HISTORY: None. MEDICATIONS: At home, none. ALLERGIES: No known drug allergies. SOCIAL HISTORY: Denies any history of tobacco, alcohol or drug use. FAMILY HISTORY: Noncontributory. REVIEW OF SYSTEMS: A 12 system was reviewed and is essentially was negative. PHYSICAL EXAMINATION: VITAL SIGNS: The patient has a temperature of 98 degrees, blood pressure 108/66, pulse rate of 88, and respiratory rate of 18. HEAD AND NECK: No JVP. No LAD. No thyromegaly. Extraocular movement intact. Pupils are reactive to light and accommodation. LUNGS: Clear to auscultation. CARDIAC: Regular rate and rhythm. S1 and S2 no murmur. No rub. ABDOMEN: Soft, nontender, and nondistended. EXTREMITIES: No edema. No clubbing. No cyanosis. NEUROLOGIC: Cranial nerves II through XII within normal limits. Upper extremities are grossly intact. LABORATORY AND DIAGNOSTIC DATA: The patient has sodium 140, potassium 5.3, chloride 106, bicarbonate 23, BUN of 21, and creatinine was 1.4. Calcium of 9. AST of 13, ALT of 12 and alkaline phosphorus of 54. Total protein of 7.1. Albumin of 3.1. UA revealed specific gravity of 1.025, protein 1+, blood 1+, WBC of 15 to 20, RBCs 5 to 10, and leukocyte esterase positive. ASSESSMENT: 1. Acute renal failure, etiology of acute renal failure are including acute tubular necrosis, most likely prerenal azotemia. 2. Urinary tract infection. 3. Mild hyperkalemia, most likely dehydration. 4. Acute coronary syndrome. PLAN: To repeat a clean-catch urine. Check random urine protein creatinine ratio to calculate the proteinuria. Check the urine sodium and creatinine to calculate fractional excretion of sodium. Low-potassium diet. Monitor renal function and electrolytes closely. Again, I would like to thank, Dr. Gunnar Marsh for allowing me to participate in the care of this patient. Kinsey Chirinos M.D. DR: GIGI JOB#: [id number] CC:
--- NOTE | 2017-03-16 13:26 | Discharge Summary ---
Discharge Summary Hospital Course Date of Admission Mar 11, 2017 at 19:55 Date of Discharge Mar 15, 2017 at 11:10 Admitting Diagnosis ACS HPI Ashwini Viera is a 51 year old female who was admitted on Mar 11, 2017 at 19: 55 for Acute Coronary Syndrome Hospital Course [id number] Discharge Discharge Disposition Patient was discharged home Discharge Diagnoses: Princess Miranda NP Mar 16, 2017 13:26
--- NOTE | 2017-03-17 01:17 | Discharge Summary 2 SIG ---
DATE OF ADMISSION: 03/11/2017 DATE OF DISCHARGE: 03/15/2017 CONSULTANTS: 1. Jazlyn Urban M.D. 2. Kinsey Chirinos M.D. 3. Ori Carroll M.D. 4. Theodore Fischer M.D. 5. Michael Mares M.D. BRIEF HOSPITAL COURSE: The patient is a 51-year-old female, who lives at home, who had substernal chest pain, which was intermittent, described to be sharp to dull with accompanied dizziness and nausea, presented to ED complaining of chest pain. She felt pain radiating towards the left arm and had some weakness on the left arm. She is a nonsmoker, but has a high risk family history of coronary artery disease. She had a prior stress test done four years ago. She was given aspirin by EMS. Nitroglycerin was not given due to low blood pressure. On evaluation at ED, EKG done showed normal sinus rhythm with no acute changes. Initial troponin was negative. Chest x-ray showed no acute process. She was then admitted to telemetry for evaluation of chest pain. Cardiac troponins and EKG was monitored. Her urinalysis showed 3+ leukocyte esterase with 40 to 60 WBC. She was initially started on Levaquin, pending culture results. Thyroid panel was checked. There was a slight elevation on TSH, which is most likely due to her state of illness. A repeat TSH and free T4 was normal. Creatinine was 1.3. She had mild elevation in potassium. Mild hyperkalemia most likely due to dehydration and acute renal failure secondary to acute tubular necrosis, most likely prerenal azotemia. Chest pain was responding to Zantac. Cardiac troponins were negative and electrocardiogram did not show any abnormality. She had an echocardiogram done that showed normal LV systolic function, LVEF of 55%. There were no wall motion abnormalities. RVSP was 99 mmHg with normal valvular physiology. The patient underwent dobutamine echo stress test on 03/13/2017, results were nonischemic. She was then cleared for discharged home. Urine culture with gram-positive organisms. Antibiotics were discontinued and was monitored off antibiotic treatment. FINAL DIAGNOSES: 1. Noncardiac chest pain, chest pain likely due to anxiety. 2. Costochondritis/musculoskeletal pain. 3. Acute renal failure. Etiology of acute renal failure includes acute tubular necrosis, most likely prerenal azotemia. 4. Mild hyperkalemia likely secondary to dehydration. 5. Pyuria/urinary tract infection. 6. Abnormal thyroid function studies. 7. Stress disorder. DISPOSITION: The patient was discharged home. DISCHARGE INSTRUCTIONS: The patient was informed to follow up in a week as outpatient. Gunnar Marsh D.O. I have been assigned to dictate discharge summary on this account and I was not involved in the patient's management. Princess Miranda N.P. DR: RADHA JOB#: [id number] CC: KING
== END 2017-03-15 11:10 | disposition home or self-care (01) | DRG 203 ==
LOC: EDBD 15:50 → EMR 16:10 → EDBEDREQ 19:42 → 2E 19:55
DX: M94.0 Chondrocostal junction syndrome [Tietze] (principal); N17.0 Acute kidney failure with tubular necrosis; N39.0 Urinary tract infection, site not specified; E03.9 Hypothyroidism, unspecified; Z82.49 Family history of ischemic heart disease and other diseases of the circulatory system; F41.9 Anxiety disorder, unspecified; E87.5 Hyperkalemia; F43.9 Reaction to severe stress, unspecified; E86.0 Dehydration
CPT/HCPCS: 36415; 71010; 80048; 80053; 80061; 81001; 81003; 82550; 83735; 83880; 84100; 84439; 84443; 84484; 85025; 85610; 85730; 86140; 87086; 93005; 93017; 93306; 93350; 94664; 99285

== ENCOUNTER 2020-01-08 08:24 | Emergency (ER) | payer MEDICAID ==
[~2020-01-08] VITALS: Ht 152.4 cm; Wt 68.0 kg
[2020-01-08 08:31] VITALS: BP 124/91
--- NOTE | 2020-01-08 08:31 | NUR ---
ED Nurse Note: Pt walked in to ED from home c/o left side chest pain, productive cough, sorethroat and n/v onset 2 days ago. Per pt, she was living with her grandson who is sick with similar symptoms. AAOx4, verbally responisve. 92% RA. Isolation precaution observed. Pt placed on monitoring manager. ERMD at bedside.
[2020-01-08] MEDS ORDERED: Azithromycin 250mg tab ORAL ONE (08:45)
--- NOTE | 2020-01-08 08:48 | Emergency Room Report ---
History of Present Illness General Chief Complaint: Flu Like Symptoms Source: Patient Present Illness HPI 54-year-old female with past medical history of anxiety presents to the emergency department with complaint of productive cough, sore throat, fatigue x 2 days. She states that her grandson is sick with similar symptoms at home. Also endorses fevers, myalgias, phlegm. States she sometimes experiences post- tussive chest wall pain, and posttussive nausea. Denies hemoptysis, recent prolonged travel or immobilization, history of blood clots, leg swelling, or blood dyscrasia. She is requesting testing for COVID 19. The patient's symptoms were gradual onset, severity was moderate, duration since 2 days. Quality: Productive cough Past medical history: Anxiety Past surgical history: Denies Smoking: Denies Alcohol use: Denies Drug use: Denies Review of systems: CONST: No fevers or chills, No night sweats PULMONARY: ++ productive cough, ++ shortness of breath CARDIAC: ++ chest wall pain after coughing, No palpitations GI: No vomiting, No diarrhea , No melena_or_BRBPR : No dysuria, No hematuria, No discharge NEURO: No new_focal_weakness_or_numbness, No confusion, No vision changes 14 point Review of Systems is otherwise negative except per HPI Physical Exam: GENERAL: Awake_alert_ nontoxic, no acute distress Spo2 96% on room air-normal EYES: Extraocular muscles are intact. Conjunctivae clear. Lids without swelling ENT: External nose and ear normal_in_appearance. Oropharynx clear. Head_atraumatic, Moist_oral_mucosa. Coughing throughout examination. Productive with phlegm NECK: No JVD. No meningismus. No thyromegaly. Supple. Trachea midline RESP: Normal respiratory effort. Symmetric rise. No stridor. Clear_to_auscultation_No_rales_++_wheezes CARDIAC: Regular rate and regular rhytm. No_significant pedal edema. ABDOMEN: Soft. Nondistended. Nontender_No_rebound_or_guarding. MSK: Normal muscle tone, without rigidity. Extremities without asymmetric deformity or swelling. SKIN: Warm and dry. No visible cyanosis or pallor NEUROLOGIC: Alert, oriented x3. Motor_and_sensation_grossly_intact. No truncal ataxia. Gait_normal Psych: Normal mood and affect, normal judgment and insight - COORDINATION OF CARE Case was discussed with: Patient Any [labs and imaging] that were ordered were interpreted as part of the medical decision making: Medical Decision Making/Plan: Differential includes acute coronary syndrome, pulmonary embolism, pneumonia, aortic dissection, pericardial tamponade, musculoskeletal chest pain, among others. Patient is nontoxic and well-appearing with stable vitals signs. She is coughing throughout entire exam with mild end expiratory wheezing. She complains of posttussive chest wall pain that is reproducible with palpation. EKG shows NSR without any obvious signs of ischemia. No significant right heart strain. CXR shows no evidence of pneumothorax, pneumonia, or significant pleural effusion. Troponin negative. Has mild leukocytosis. Suspect bronchitis. COVID negative. ED intervention included rocephin, azithro, fluids, and duoneb. SPO2 improved to 100% s/p neb. Wheezing resolved. Acute coronary syndrome is unlikely and the patient is low risk, pain is atypical, nonexertional, and troponin is negative with over 6 hrs of symptoms. The pain is not classic for pericarditis or myocarditis, and the patient has no significant risk factors for a pericardial effusion and has stable vitals signs, unlikely to have tamponade. Pain is not likely to be pulmonary embolism (PERC negative), and no significant PE risk factors. The patient has no significant risk factors for aortic dissection, no history of connective tissue disorder, and the patients pain is not severe, radiating to the back, or tearing in nature. They have normal bilateral radial and pedal pulses. Patient observed for several hours in the ED, ECG with no emergent findings, patient discharged with no dangerous vital signs, patient instructed to follow up with PMD in the next 1-2 days. HEART score < 4, which indicates low risk, so the patient can be safely discharged with the understanding that they need to make an appointment with a primary care doctor to be referred for a stress test within the next 48-72 hours, or if they cannot arrange that they are to return to the ED, or sooner than that if they have any changing, persistent, or worsening symptoms. Allergies: Coded Allergies: No Known Allergies (Unverified , 03/11/17) COVID-19 Screening Contact w/high risk pt: No Experienced COVID-19 symptoms?: Yes COVID-19 Testing performed MANAGER CODE: No Patient History Last Menstrual Period: na Nursing Documentation-PMH Past Medical History: No History, Except For Hx Cardiac Problems: No Hx Cancer: No Hx Gastrointestinal Problems: No Hx Neurological Problems: No Physical Exam Vital Signs Date Time Temp Pulse Resp B/P (MAP) Pulse Ox O2 Delivery O2 Flow Rate FiO2 01/08/20 08:27 99.0 87 16 124/91 (102) 92 Room Air Sp02 EP Interpretation: reviewed, normal Medical Decision Making Diagnostic Impression: Primary Impression: Cough Additional Impression: Sore throat EKG Diagnostic Results Troponin ordered: Yes When was troponin ordered?: Jan 08, 2020 EKG Time: 08:46 Rate: normal Rhythm: NSR ST Segments: no acute changes ASA given to the pt in ED: No PA Scribe Text 12-lead EKG (interpreted by me) Time: 849 Indication: Rhythm analysis Tracing visualized and Interpreted by me. Rhythm: Normal sinus rhythm Rate: 72 bpm QTc: 396 Morphology: No_significant_ST_elevations_or_depressions, No STEMI Impression: Normal_sinus_rhythm_without_significant_abnormality. No right heart strain Rhythm Strip Diag. Results Rhythm Strip Time: 08:46 EP Interpretation: yes Rate: 81 Rhythm: NSR, no PVC's, no ectopy Chest X-Ray Diagnostic Results Chest X-Ray Diagnostic Results : IRAIS Garcíaibe Text Chest X-Ray: Views: 1 view(s) Indication: Cough Findings: Normal heart size. Mediastinum normal. No infiltrate. Impression: No acute disease The X-ray(s) were independently viewed and interpreted contemporaneously Electronically signed by Samantha morton DO Reevaluation Time: 11:02 Last Vital Signs Date Time Temp Pulse Resp B/P (MAP) Pulse Ox O2 Delivery O2 Flow Rate FiO2 01/08/20 08:27 99.0 87 16 124/91 (102) 92 Room Air Status: improved Disposition: HOME, SELF-CARE Admit Decision Time: 11:05 Condition: Stable Scripts Prednisone* (PREDNISONE*) 20 Mg Tablet 40 MG ORAL DAILY, #10 TAB Prov: Samantha Larsen D.OIlya 01/08/20 Guaifenesin/D-Methorphan Hb/Pe (ROBITUSSIN COUGH-COLD CF LIQ*) 118 Ml Liquid 10 ML ORAL Q8H PRN for FOR COUGH, #118 ML Prov: Samantha Larsen D.O. 01/08/20 Doxycycline Monohydrate* (DOXYCYCLINE MONOHYDRATE*) 100 Mg Capsule 100 MG ORAL Q12H, #14 CAP 0 Refills Prov: Samantha Larsen D.O. 01/08/20 Azithromycin* (ZITHROMAX*) 250 Mg Tablet 250 MG ORAL DAILY, #6 TAB 0 Refills Take two tables once daily for 1 day, then one tablet once daily for 4 days. Prov: Samantha Larsen D.O. 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 Follow-up with your doctor sooner if your condition requires a more timely clinical reevaluation. Return to the emergency department immediately if you feel that your condition is worsening or if you have any new or concerning symptoms. Review your discharge instructions and take any prescriptions given as instructed. [facility] PROVIDES FREE OR LOW-COST HEALTH SERVICES TO PEOPLE WHO CAN SHOW PROOF THAT THEY LIVE IN [facility]. TO FIND MORE CLINICS PARTNERED WITH [facility] TO PROVIDE SERVICE, PLEASE CALL . Samantha Larsen D.O. Jan 08, 2020 08:48
--- NOTE | 2020-01-08 08:56 | NUR ---
ED Nurse Note: IV line established. Blood and covid swab sent to lab.
--- NOTE | 2020-01-08 09:00 | NUR ---
ED Nurse Note: Xray at bedside.
[2020-01-08 09:03] LABS: BASOPHILS % (AUTO) 3.8 % (0.0-2.0); EOSINOPHILS % (AUTO) 0.8 % (0.0-3.0); HEMATOCRIT 43.6 % (37.0-47.0); HEMOGLOBIN 14.4 G/DL (12.0-16.0); LYMPHOCYTES % (AUTO) 18.9 % (20.0-45.0); MEAN CORPUSCULAR VOLUME 85 FL (80-99); MONOCYTES % (AUTO) 8.7 % (1.0-10.0); NEUTROPHILS % (AUTO) 67.7 % (45.0-75.0); PLATELET COUNT 246 K/UL (150-450); RED BLOOD COUNT 5.12 M/UL (4.20-5.40); RED CELL DISTRIBUTION WIDTH 12.6 % (11.6-14.8); WHITE BLOOD COUNT 11.5 K/UL (4.8-10.8)
[2020-01-08 09:13] LABS: INR 1.1 (0.9-1.1)
[2020-01-08 09:18] LABS: CALCIUM 9.4 MG/DL (8.5-10.1); CREATININE 1.3 MG/DL (0.55-1.30); POTASSIUM 4.4 MMOL/L (3.5-5.1)
[2020-01-08 09:30] LABS: ALBUMIN 3.7 G/DL (3.4-5.0); ALBUMIN/GLOBULIN RATIO 1.1 (1.0-2.7); BILIRUBIN,TOTAL 0.5 MG/DL (0.2-1.0)
[2020-01-08] MEDS ORDERED: cefTRIAXone 1 GM in NS 55 ML IVPB ONE (09:45)
[2020-01-08] MEDS ORDERED: Albuterol/Ipratropium 3ml neb HHN ONE (10:00)
--- NOTE | 2020-01-08 10:27 | NUR ---
ED Nurse Note: RT at bedside for breathing tx.
[2020-01-08] MEDS ORDERED: PREDNISONE20 MG ORAL (10:49)
[2020-01-08] MEDS ORDERED: DOXYCYCLINE MO100 MG ORAL (10:49)
[2020-01-08] MEDS ORDERED: ROBITUSSIN COU118 M1 ORAL (10:49)
[2020-01-08] MEDS ORDERED: ZITHROMAX250 MG ORAL (10:49)
[2020-01-08 11:02] VITALS: BP 140/71
--- NOTE | 2020-01-08 11:02 | NUR ---
ED Nurse Note: Pt cleared by ERMD for discharge. DC instructions/prescription was given and explained to pt and verbalized understanding of teachings. All medical deviecs such as ID band and IV line removed. Pt is AAO x4, ambulatory and left with all personal belongings. P/u by daughter.
--- NOTE | 2020-01-08 14:16 | Diagnostic Imaging Report ---
Indication: Shortness of breath Technique: One view of the chest Comparison: none Findings: Lungs and pleural spaces are clear. Heart size is normal. No significant change Impression: No acute process
--- NOTE | 2020-01-09 16:23 | Cardiology Report ---
APPROVED REPORT EKG Measurement Heart [id number] <Conclusion> Normal sinus rhythm Normal ECG
== END 2020-01-08 11:02 | disposition home or self-care (01) ==
LOC: EMR 08:47
DX: R05 Cough (principal); J02.9 Acute pharyngitis, unspecified
CPT/HCPCS: 36415; 71045; 80053; 83690; 83880; 84484; 85025; 85610; 85730; 93005; 94640; 96365; J0696; Q0144; U0002; Z7502; 99284; J7620

== ENCOUNTER 2020-06-13 17:14 | Emergency (ER) | payer MEDICAID ==
[~2020-06-13] VITALS: Ht 152.4 cm; Wt 70.8 kg
[~2020-06-13 17:14] MED LIST changes: +DOXYCYCLINE MO100 MG ORAL; +PREDNISONE20 MG ORAL; +ROBITUSSIN COU118 M1 ORAL; +ZITHROMAX250 MG ORAL
[2020-06-13 18:36] VITALS: BP 117/76
--- NOTE | 2020-06-13 18:39 | Diagnostic Imaging Report ---
EXAM: CT Head Without Intravenous Contrast CLINICAL HISTORY: PAIN TECHNIQUE: Axial computed tomography images of the head/brain without intravenous contrast. CTDI is 106.8 mGy and DLP is 1984.20 mGy-cm. One or more of the following dose reduction techniques were used: automated exposure control, adjustment of the mA and/or kV according to patient size, use of iterative reconstruction technique. COMPARISON: 11/18/2003. FINDINGS: Brain: No abnormal extra-axial collection. No hemorrhage. Midline shift: No midline shift or mass-effect. Ventricles: The ventricular system is age appropriate. Bones/joints: Calvarium is within normal limits. No acute fracture. Soft tissues: Unremarkable. Sinuses: Visualized sinuses are unremarkable. Mastoid air cells: Mastoid air cells are well pneumatized. IMPRESSION: 1. No acute intracranial pathology. 2. If there is concern for etiology such as early acute lacunar infarcts, magnetic resonance imaging of the brain with diffusion-weighted sequences should be performed.
--- NOTE | 2020-06-13 18:42 | Diagnostic Imaging Report ---
EXAM: CT Cervical Spine Without Intravenous Contrast CLINICAL HISTORY: PAIN TECHNIQUE: Axial computed tomography images of the cervical spine without intravenous contrast. CTDI is 20.20 mGy and DLP is 468.70 mGy-cm. One or more of the following dose reduction techniques were used: automated exposure control, adjustment of the mA and/or kV according to patient size, use of iterative reconstruction technique. COMPARISON: No previous studies. FINDINGS: Vertebrae: Alignment of the cervical spine is within normal limits. Cervical and visualized thoracic vertebral bodies are maintained in height. There is a normal relationship of C1 and C2. Transaxial images of the cervical spine reveal no significant acute injuries. Discs/spinal canal/neural foramina: No acute findings. No spinal canal stenosis. Soft tissues: Paraspinal and regional soft tissues are within normal limits. Lung apices: Lung apices are unremarkable. Other findings: Spinous processes are unremarkable. IMPRESSION: No acute injury to the cervical spine is detected.
[2020-06-13] MEDS ORDERED: GABAPENTIN400 MG ORAL (19:06)
[2020-06-13] MEDS ORDERED: IBUPROFEN400 M1 PO (19:10)
[2020-06-13] MEDS ORDERED: TRAMADOL HCL50 MG ORAL (19:17)
--- NOTE | 2020-06-14 16:06 | Emergency Room Report ---
History of Present Illness General Chief Complaint: Shoulder Injury Source: Patient Present Illness HPI Patient is a 54-year-old female who presents for increased left-sided shoulder pain. Reports having increased pain with movement especially with abduction of the shoulder. Denies any vomiting or diarrhea. Denies any chest discomfort. Reports having some increased pain with movements above the shoulder level. Also reports having some discomfort to the forearm. Denies any recent trauma. Had previous x-ray imaging of the shoulder that was reportedly negative. Allergies: Coded Allergies: No Known Allergies (Unverified , 03/11/17) COVID-19 Screening Contact w/high risk pt: No Experienced COVID-19 symptoms?: No COVID-19 Testing performed VOLCANOLOGY PROFESSOR: No Patient History Past Medical History: see triage record Last Menstrual Period: Post menopausal Reviewed Nursing Documentation: PMH: Agreed; PSxH: Agreed Nursing Documentation-PMH Hx Cardiac Problems: No Hx Hypertension: No Hx Pacemaker: No Hx Asthma: No Hx COPD: No Hx Diabetes: No Hx Cancer: No Hx Gastrointestinal Problems: No Hx Dialysis: No History Of Psychiatric Problem: No Hx Neurological Problems: No Hx Cerebrovascular Accident: No Hx Seizures: No Review of Systems All Other Systems: negative except mentioned in HPI Physical Exam Vital Signs Date Time Temp Pulse Resp B/P (MAP) Pulse Ox O2 Delivery O2 Flow Rate FiO2 06/13/20 17:25 98.4 65 16 117/76 (90) 94 Room Air Sp02 EP Interpretation: reviewed, normal General Appearance: normal inspection, well appearing, no apparent distress, alert, GCS 15 Head: atraumatic ENT: normal ENT inspection, hearing grossly normal, normal voice Neck: normal inspection, full range of motion, supple, no bony tend Respiratory: normal inspection, lungs clear, normal breath sounds, no respiratory distress, no retraction, no wheezing Cardiovascular #1: regular rate, rhythm, no edema Gastrointestinal: normal inspection, normal bowel sounds, non tender, soft, no guarding, no hernia Genitourinary: no CVA tenderness Musculoskeletal: normal inspection, back normal, normal range of motion Neurologic: alert, motor strength/tone normal, warehouse lead III-XII nml as tested, oriented x3, responsive, speech normal, normal inspection Psychiatric: normal inspection, judgement/insight normal, mood/affect normal Skin: no rash Medical Decision Making Diagnostic Impression: Primary Impression: Shoulder pain, left ER Course Patient presented for shoulder pain. Differential diagnosis include was not limited to cervical radiculopathy, CVA, rotator cuff bursitis among others. CT imaging was ordered due to patient's complaints and difficulty with movement. Patient does not appear to have any evidence of shoulder fracture and has had negative x-rays recently. CT imaging read by radiology showed no evidence of acute intracranial process CT of the cervical spine was normal. Patient was given medications for symptomatic management of pain. She advised that she should follow-up with her primary care physician for neurology referral and possible MRI. Patient was advised to return if worse. At the time of discharge patient was awake alert oriented and was able to move all of her extremities with good pulses. 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 There may be some bowling alley operator discrepancies related to use of this software EKG Diagnostic Results Rate: normal Rhythm: NSR ST Segments: no acute changes Last Vital Signs Date Time Temp Pulse Resp B/P (MAP) Pulse Ox O2 Delivery O2 Flow Rate FiO2 06/13/20 18:36 98.4 16 117/76 94 Room Air 06/13/20 17:25 65 Status: improved Disposition: HOME, SELF-CARE Condition: Stable Scripts Tramadol Hcl* (ULTRAM*) 50 Mg Tablet 50 MG ORAL Q6H PRN for For Pain, #12 TAB 0 Refills Prov: Link Sun MD 06/13/20 Ibuprofen (Ibuprofen) 400 Mg Tablet 400 MG PO EVERY 8 HOURS, #30 TAB Prov: Link Sun MD 06/13/20 Patient Instructions: Shoulder Pain Additional Instructions: Follow up with your doctor for further workup and possible MRI. Return if worse. Link Sun MD Jun 14, 2020 16:06
== END 2020-06-13 20:02 | disposition home or self-care (01) ==
LOC: EMR 17:41
DX: M25.512 Pain in left shoulder (principal); R51.9 Headache, unspecified
CPT/HCPCS: 70450; 72125; 93005; Z7502; 99284